=== PATIENT | male | born 1990 | race American Indian/Alaskan Native ===

== ENCOUNTER 2019-05-29 08:03 | Inpatient (IN) | payer OTHER ==
[2019-05-29] MEDS ORDERED: LORazepam 2 MG/ML VIAL IV PRN ×2 (08:29)
[2019-05-29] MEDS ORDERED: THIAMINE 100 MG, FOLIC ACID 1 MG, MULTIPLE VITAMIN INJ, ADULT 10 ML in SODIUM CHLORIDE ... IV ONE (08:29)
[2019-05-29] MEDS ORDERED: SODIUM CHLORIDE 0.9% 1000 ML 1,000 ML IV ONE ×2 (08:29→11:20)
[2019-05-29] MEDS ORDERED: levETIRAcetam 1000 MG/NS 0.75% 1,000 MG/100 ML BAG IV ONE (08:30)
--- NOTE | 2019-05-29 08:40 | Emergency Department Report ---
HPI - General Chief Complaint: Alcohol Time Seen by Provider: 05/29/19 08:20 - HPI HPI: 29-year-old -[place] male presents to the emergency department with complaint of what he believes to be alcohol withdrawal and "liver failure." The patient apparently does have some history of liver disease but denies liver failure. Patient does drink daily and says his last alcoholic beverage was last night. The patient also allegedly had a seizure last night. He complains of some nausea, vomiting, generalized weakness, shortness of breath. He does have a history of seizures for which she is on Keppra 500 mg twice daily but says he has not taken it for the past 2 days. Denies any tobacco or illicit drug use. No recent travel or sick contacts at home. ED Past Medical Hx - Past Medical History Previous Medical History?: Yes Hx Seizures: Yes Additional medical history: Liver disease, ETOH abuse - Surgical History Past Surgical History?: No - Social History Smoking Status: Current Every Day Smoker Substance Use Type: Alcohol, Prescribed ED Review of Systems ROS: Stated complaint: LIVER ISSUES, SOB, SEIZURES Other details as noted in HPI Comment: All other systems reviewed and negative Constitutional: diaphoresis. denies: fever Eyes: denies: eye pain, vision change ENT: denies: ear pain, throat pain Respiratory: shortness of breath. denies: cough Cardiovascular: denies: chest pain, palpitations Gastrointestinal: abdominal pain, nausea, vomiting Genitourinary: denies: dysuria, discharge Musculoskeletal: denies: back pain, arthralgia Skin: denies: rash, lesions Neurological: denies: headache, numbness, paresthesias Physical Exam - Physical Exam Vital Signs: Vital Signs 05/29/19 08:06 Temperature 98.6 F Pulse Rate 120 H Respiratory 18 Rate Blood Pressure 127/96 O2 Sat by Pulse 100 Oximetry Physical Exam: GENERAL: The patient is well-developed well-nourished. HENT: Normocephalic. Atraumatic. Patient has moist mucous membranes. EYES: Extraocular motions are intact. NECK: Supple. Trachea is midline. CHEST/LUNGS: Clear to auscultation. There is no respiratory distress noted. HEART/CARDIOVASCULAR: Regular. There is mild to moderate tachycardia. There is no murmur. ABDOMEN: Abdomen is soft. There is some upper abdominal tenderness to palpation. No guarding. Patient has normal bowel sounds. There is no abdominal distention. SKIN: Skin is warm and dry. NEURO: The patient is awake, alert, and oriented. The patient is cooperative. The patient has no focal neurologic deficits. Normal speech. Cranial nerves II through XII grossly intact. MUSCULOSKELETAL: There is no tenderness or deformity. There is no evidence of acute injury. ED Course Vital Signs 05/29/19 08:06 Temperature 98.6 F Pulse Rate 120 H Respiratory 18 Rate Blood Pressure 127/96 O2 Sat by Pulse 100 Oximetry - Consultations Consultation #1: 05/29/19 13:42 I spoke with the subeditor on-call, Dr. Sánchez, who will consult on this patient and has asked for an MRCP. I spoke with the general surgeon on-call, Dr. Cummings, who agrees that the lab and imaging results appear most consistent with liver disease and the patient does not appear to require any immediate surgical intervention. ED Medical Decision Making - Lab Data Result diagrams: 05/29/19 08:36 05/29/19 08:36 - EKG Data -: EKG Interpreted by Me EKG shows normal: sinus rhythm, axis, intervals, QRS complexes, ST-T waves Rate: normal - EKG Data When compared to previous EKG there are: previous EKG unavailable Interpretation: normal EKG - Medical Decision Making This patient presents to the emergency department with complaint of nausea, vomiting, generalized weakness, abdominal pain that he equated to alcohol withdrawal. The patient does have a history of alcohol dependence and presents with a blood alcohol level of 0.22. He does not appear acutely intoxicated at this time so it is possible that some of his symptoms could be attributed to withdrawal. Labs show very elevated bilirubin, alk phos and some elevation in the LFTs. Abdominal and chest x-rays are unremarkable. Ultrasound shows fatty liver disease, gallbladder sludge, and either some pericholecystic fluid versus edematous gallbladder wall. GI has been contacted and consulted. General surgery was contacted as well. The patient will be admitted to the hospital for further evaluation and treatment and has been accepted for admission by the hospitalist, Dr. Ruth. - Differential Diagnosis Cholelithiasis, choledocholithiasis, hepatitis, alcohol withdrawal Critical Care Time: Yes Critical care time in (mins) excluding proc time.: 35 Critical care attestation.: If time is entered above; I have spent that time in minutes in the direct care of this critically ill patient, excluding procedure time. Critical care time spent on this patient in doing his initial evaluation, multiple re-evaluations, ordering and interpretation of labs and imaging, treatment of the hyponatremia, discussion with gastroenterology regarding possible choledocholithiasis, discussion with general surgery, multiple discussions with the patient. Critical Care Time: 35 minutes ED Disposition Clinical Impression: Hyponatremia, Choledocholithiasis, Hypokalemia, Hepatitis Alcohol dependence Qualifiers: Substance use status: unspecified alcohol-induced disorder Qualified Code(s): F10.29 - Alcohol dependence with unspecified alcohol-induced disorder Cholelithiasis Qualifiers: Cholelithiasis location: gallbladder Cholecystitis presence: with cholecystitis Cholecystitis acuity: unspecified acuity Biliary obstruction: without biliary obstruction Qualified Code(s): K80.10 - Calculus of gallbladder with chronic cholecystitis without obstruction Disposition: OP ADMIT IP TO THIS HOSP Is pt being admited?: Yes Condition: Fair Time of Disposition: 13:15
--- NOTE | 2019-05-29 09:05 | XRay Report ---
ACUTE ABDOMEN SERIES INDICATION / CLINICAL INFORMATION: abd pain. COMPARISON: None available. FINDINGS: Normal bowel gas pattern. No evidence of obstruction or pneumoperitoneum. The accompanying chest x-ra y shows no acute disease Signer Name: Evangelist Hayden MD FACR Signed: 05/29/2019 9:00 AM Workstation Name: [id number]
[2019-05-29 09:24] LABS: Hematocrit 32.5 % (35.5-45.6); Hemoglobin 10.2 gm/dl (11.8-15.2); Mean Corpuscular HGB Conc 32 % (32-34); Mean Corpuscular Volume 96 fl (84-94); Platelet Count 262 K/mm3 (140-440); Red Cell Distribution Width 16.6 % (13.2-15.2)
[2019-05-29 09:26] LABS: Alanine Aminotransferase 137 units/L (7-56); Albumin 3.1 g/dL (3.9-5); BUN/Creatinine Ratio 5; Blood Urea Nitrogen 2 mg/dL (9-20); Calcium 7.5 mg/dL (8.4-10.2); Hemolysis Index 8
[2019-05-29] MEDS ORDERED: POTASSIUM CHLORIDE ER 20 MEQ TAB PO ONE (09:34)
[2019-05-29] MEDS ORDERED: MAGNESIUM SULFATE 2 GM/50 ML BAG IV ONE ×2 (09:34→23:43)
[2019-05-29 10:30] LABS: Bacteria,Urine 1+ /HPF (Negative); Bilirubin,Urine MOD (Negative); Blood,Urine NEG (Negative); Color,Urine Amber (Yellow); Mucus,Urine FEW /HPF
[2019-05-29 10:37] LABS: Benzodiazepines Screen,Urine PRESUMPTIVE NEGATIVE; Cocaine Screen,Urine PRESUMPTIVE NEGATIVE; Methadone Screen,Urine PRESUMPTIVE NEGATIVE; Opiate Screen,Urine PRESUMPTIVE NEGATIVE
[2019-05-29] MEDS: LORazepam 2 MG/ML VIAL IV PRN ×2 (10:52→23:15)
[2019-05-29 11:00] LABS: Amphetamine Screen,Urine PRESUMPTIVE POSITIVE; Cannabinoid Screen,Urine PRESUMPTIVE POSITIVE
[2019-05-29 11:04] LABS: Band Neutrophils # (Manual) 0.1 K/mm3; Eosinophils % (Manual) 0 % (0.0-4.3); Myelocytes # (Manual) 0.1 K/mm3; Total Cells Counted 100
[2019-05-29] MEDS ORDERED: PIPERACIL/TAZOBACTA 4.5/NS 100 4.5 GM/100 ML VIAL IV ONE (11:04)
[2019-05-29 11:05] LABS: Hypochromasia Few; Platelet Estimate Consistent w Auto; Stomatocytes Few; Target Cells 1+
--- NOTE | 2019-05-29 11:10 | Ultrasound Report ---
US abdomen limited INDICATION / CLINICAL INFORMATION: upper abd pain, elevated bilirubin. COMPARISON: None available. FINDINGS: Sludge is seen in the gallbladder with either a small amount of pericholecystic fluid or edematous ga llbladder wall. Common bile duct is normal measuring 2 mm. The liver is enlarged and has diffuse fatt y infiltration without focal abnormality. Visualized portions of the pancreas, right kidney and aorta are normal. IMPRESSION: 1. Sludge in the gallbladder with either a small amount of pericholecystic fluid present or mildly ed ematous gallbladder wall. 2. Enlarged fatty liver without focal abnormality Signer Name: Evangelist Hayden MD FACR Signed: 05/29/2019 11:05 AM Workstation Name: [id number]
[2019-05-29 11:20] LABS: Ictotest,Urine Positive (Negative)
--- NOTE | 2019-05-29 23:36 | Event Note ---
Date: 05/29/19 See history and physical in the reports EtOH dependence Acute hepatitis Impending liver failure Polysubstance abuse including alcohol and marijuana Hypokalemia
[2019-05-29] MEDS ORDERED: CALCIUM GLUCONATE 2,000 MG in SODIUM CHLORIDE 0.9% 100 ML IV ONE (23:44)
[2019-05-29] MEDS ORDERED: ACETAMINOPHEN 325 MG TAB PO PRN (23:48)
[2019-05-29] MEDS ORDERED: ONDANSETRON 4 MG/2 ML INJ IV PRN (23:48)
[2019-05-29] MEDS ORDERED: HYDROmorphone 1 MG/1 ML INJ IV PRN (23:48)
[2019-05-29] MEDS ORDERED: oxyCODONE /ACETAMINOPHEN 5-325MG TAB PO PRN (23:48)
--- NOTE | 2019-05-29 23:54 | History and Physical Report ---
CHIEF COMPLAINT: 1. ETOH dependence. 2. Tremulousness. HISTORY OF PRESENT ILLNESS: A 29-year-old -[place] male with history of ETOH dependence, comes in for tremulousness and possible hepatic failure. The patient drinks daily about a pint of vodka. The patient states that he has been drinking for the last 3 years. The patient also has seizures last night. No seizures now. The patient has nausea, vomiting, and generalized weakness and some shortness of breath. The patient is on Keppra for seizure disorder 500 mg twice a day. No tobacco. Uses marijuana on a regular basis. A pint of vodka every day. PAST MEDICAL HISTORY: 1. Seizure disorder secondary to alcohol withdrawal. 2. Liver disease and hepatitis. 3. Alcohol abuse. PAST SURGICAL HISTORY: None. SOCIAL HISTORY: Smokes about a pack a day every day and alcohol and marijuana on a regular basis. Pint of vodka on a regular basis. FAMILY HISTORY: Hypertension. REVIEW OF SYSTEMS: Significant for tremulousness, seizures last night and very nervous, shaking. Restlessness. Otherwise, review of systems negative. PHYSICAL EXAMINATION: GENERAL: Young male, cooperative during examination. VITAL SIGNS: Blood pressure is 126/90, temperature is 98.9, pulse is 97, respirations are 18, sats are 99%. HEENT: Unremarkable. Pupils equal and reactive. NECK: Supple, no lymphadenopathy, no thyromegaly. LUNGS: Clear to auscultation and percussion. Good air entry. CARDIOVASCULAR SYSTEM: S1, S2 heard. No gallop, no murmur, no rub. Apical impulse in left fifth intercostal space and midclavicular line. ABDOMEN: Soft and benign. Hepatomegaly present. No guarding or tenderness present. Bowel sounds are normal. EXTREMITIES: Good pedal pulses. No pedal edema. CENTRAL NERVOUS SYSTEM: Alert and oriented x 4, was answering questions appropriately. No focal deficits. LABORATORY DATA: Significant for white count of 8500, H and H is 10.2 and 32.5, platelet count is 262,000. Sodium is 126, potassium is 2.9, BUN and creatinine is 2 and 0.4, glucose is 133, calcium is 7.5, magnesium is 1.1, total bilirubin is 9.0, AST is 426, ALT is 137, alkaline phosphatase is 663, total protein is 5.9, albumin is 3.1, lipase is 84. Urine Ictotest is positive for wbc's 11. Drug screen is positive for alcohol of 0.22 and marijuana is positive. Amphetamines is positive. Chest x-ray normal. Small bowel gas pattern. No evidence of obstruction or pneumoperitoneum. No acute disease on the chest. Abdominal ultrasound shows sludge in the gallbladder with a small amount of pericholecystic fluid present. Mildly edematous gallbladder wall. Enlarged fatty liver without focal abnormality. ASSESSMENT AND PLAN: 1. Seizure disorder secondary to alcohol withdrawal. Continue Keppra IV at 750 q. 12. 2. ETOH dependence and withdrawal. The patient initiated on CIWA protocol. Continue CIWA protocol and banana bag. 3. Anemia. Anemia workup. 4. Hyponatremia. IV normal saline for now. 5. Hypokalemia, supplemented. Recheck the potassium level. 6. Acute hepatitis. Bilirubin is 9.0, AST is 426, ALT is 137. We will get hepatitis profile in favor of ETOH induced hepatitis. We will check ammonia level also. We will also check the protime and PTT. 7. Hypomagnesemia, supplemented. 8. Hypocalcemia, supplemented. 9. Urinary tract infection, IV Rocephin 1 gram IV piggyback q. 24. 10. Deep venous thrombosis prophylaxis, Lovenox 40 subcutaneous daily. 11. Acute gastritis. IV famotidine. GI consult requested. ER physician has requested surgical consult. At this point, I do not think there is any surgical indication leg choledocholithiasis. JOB# [id number] VSM/NTS
[2019-05-30] MEDS: FAMOTIDINE 20 MG/2 ML INJ IV SCH ×3 (01:00→23:00)
[2019-05-30] MEDS: POTASSIUM CHLORIDE 10 MEQ 10 MEQ/100 ML BAG IV SCH ×4 (01:01→05:00)
[2019-05-30] MEDS: POTASSIUM CHLORIDE ER 20 MEQ TAB PO SCH ×3 (01:02→08:34)
[2019-05-30 01:20] LABS: Hepatitis B Surface Antigen Non-Reactive (Negative); Hepatitis C Virus Antibody Non-Reactive (NonReactive)
[2019-05-30] MEDS: levETIRAcetam 750 MG in DEXTROSE 5% IN WATER 100 ML IV SCH ×3 (01:40→22:55)
[2019-05-30] MEDS: D5W/0.9% NACL 1,000 ML IV SCH ×2 (02:07→11:52)
[2019-05-30] MEDS ORDERED: SODIUM CHLORIDE 0.9% 250ML 250 ML ONE (02:29)
[2019-05-30] MEDS: LORazepam 2 MG/ML VIAL IV PRN ×4 (02:48→17:06)
[2019-05-30 03:12] LABS: Iron 118 ug/dL (49-181)
[2019-05-30 05:40] LABS: % Iron Saturation 101.72 %; Total Iron Binding Capacity 116 mcg/dL (250-450)
[2019-05-30 06:37] LABS: Hematocrit 27.5 % (35.5-45.6); Hemoglobin 8.9 gm/dl (11.8-15.2); Mean Corpuscular HGB Conc 32 % (32-34); Mean Corpuscular Volume 96 fl (84-94); Platelet Count 251 K/mm3 (140-440); Red Blood Count 2.85 M/mm3 (3.65-5.03); Red Cell Distribution Width 16.5 % (13.2-15.2)
[2019-05-30 07:04] LABS: Alanine Aminotransferase 107 units/L (7-56); Albumin 2.7 g/dL (3.9-5); BUN/Creatinine Ratio 7; Blood Urea Nitrogen 2 mg/dL (9-20); Calcium 7.5 mg/dL (8.4-10.2); Hemolysis Index 23
[2019-05-30] MEDS ORDERED: cefTRIAXone/NS 1 GM/50 ML 1 GM/50 ML BAG IV SCH (10:00)
[2019-05-30 10:06] LABS: Band Neutrophils # (Manual) 0.3 K/mm3; Myelocytes # (Manual) 0.2 K/mm3; Total Cells Counted 100
[2019-05-30 10:07] LABS: Hypochromasia Few; Platelet Estimate Consistent w Auto; Stomatocytes Few; Target Cells 1+
--- NOTE | 2019-05-30 14:00 | Progress Note ---
Assessment and Plan Assessment and plan: Patient is a 29 yo man with a history of tobacco dependency, alcohol abuse, Liver disease and seizure disorder who presented to hosptial with Sz at home. He was quite Intoxicated, with serum ETOH 0.22 (0-0.7). UDS is positive for Amphetamines and marijuana. Unwitnessed Sz with history fo sz, most likely ETOH related, ETOH intoxication: counseling done, neurochecks, sz precautions, on keppra Acute toxic encephalopathy from ETOH Hyponatremia, severe: treat with IVFs Alcohol abuse: treat with CIWA,added thiamine and folic acid Fatty liver/Hepatic steasosis due to ETOH Abd GB on imaging but no pains, and no confusion. MRCP, GI consulted Polysubstance abuse, counseling done, he attribute his current state to father dying 2 months abuse. He denies SI but he is in a destructive mode. He needs extensive out patient behavior therapy, will refer him to out patient psychiatrist. 05/30/19: d/c once sodium levels are stable, MRCP pending History Interval history: Patient was seen and examined. Follow-up on current diagnosis etoh abuse. Overnight uneventful as no events directly reported to me. Patient denies any chest pain, shortness breath, nausea/vomiting or severe headaches. Imaging, nursing note, chart, labs and old chart reviewed. Discussed with patient. Hospitalist Physical - Physical exam Narrative exam: Gen: WDWN, NAD, Awake, Alert, Orientated HEENT: NCAT, EOMI, PERRL, OP Clear Neck: supple, no adenopathy, no thyromegaly, no JVD CVS/Heart: RT, normal S1S2, pulses present bilaterally Chest/Lungs: CTA B, Symmetrical chest expansion, good air entry bilaterally GI/Abdomen: soft, NTND, good bowel sounds, no guarding or rebound /Bladder: no suprapubic tenderness, no CVA or paraspinal tenderness Extermity/Skin: no c/c/e, no obvious rash MSK: FROM x 4 Neuro: CN 2-12 grossly intact, no new focal deficits Psych: calm - Constitutional Vitals: Temp Pulse Resp BP Pulse Ox 99.9 F H 117 H 24 112/73 99 05/30/19 11:23 05/30/19 11:23 05/30/19 11:23 05/30/19 11:23 05/30/19 11:23 Results - Labs CBC & Chem 7: 05/30/19 05:03 05/30/19 05:03 Labs: Laboratory Last Values WBC 8.5 K/mm3 (4.5-11.0) 05/30/19 05:03 RBC 2.85 M/mm3 (3.65-5.03) L 05/30/19 05:03 Hgb 8.9 gm/dl (11.8-15.2) L 05/30/19 05:03 Hct 27.5 % (35.5-45.6) L 05/30/19 05:03 MCV 96 fl (84-94) H 05/30/19 05:03 MCH 31 pg (28-32) 05/30/19 05:03 MCHC 32 % (32-34) 05/30/19 05:03 RDW 16.5 % (13.2-15.2) H 05/30/19 05:03 Plt Count 251 K/mm3 (140-440) 05/30/19 05:03 Baso % (Auto) Bead Maker 05/29/19 08:36 Add Manual Diff Complete 05/30/19 05:03 Total Counted 100 05/30/19 05:03 Seg Neuts % (Manual) 75.0 % (40.0-70.0) H 05/30/19 05:03 Band Neutrophils % 3.0 % 05/30/19 05:03 Lymphocytes % (Manual) 13.0 % (13.4-35.0) L 05/30/19 05:03 Reactive Lymphs % (Man) 0 % 05/30/19 05:03 Monocytes % (Manual) 4.0 % (0.0-7.3) 05/30/19 05:03 Eosinophils % (Manual) 2.0 % (0.0-4.3) 05/30/19 05:03 Basophils % (Manual) 1.0 % (0.0-1.8) 05/30/19 05:03 Metamyelocytes % 0 % 05/30/19 05:03 Myelocytes % 2.0 % 05/30/19 05:03 Promyelocytes % 0 % 05/30/19 05:03 Blast Cells % 0 % 05/30/19 05:03 Nucleated RBC % 5.0 % (0.0-0.9) H 05/30/19 05:03 Seg Neutrophils # Man 6.4 K/mm3 (1.8-7.7) 05/30/19 05:03 Band Neutrophils # 0.3 K/mm3 05/30/19 05:03 Lymphocytes # (Manual) 1.1 K/mm3 (1.2-5.4) L 05/30/19 05:03 Abs React Lymphs (Man) 0.0 K/mm3 05/30/19 05:03 Monocytes # (Manual) 0.3 K/mm3 (0.0-0.8) 05/30/19 05:03 Eosinophils # (Manual) 0.2 K/mm3 (0.0-0.4) 05/30/19 05:03 Basophils # (Manual) 0.1 K/mm3 (0.0-0.1) 05/30/19 05:03 Metamyelocytes # 0.0 K/mm3 05/30/19 05:03 Myelocytes # 0.2 K/mm3 05/30/19 05:03 Promyelocytes # 0.0 K/mm3 05/30/19 05:03 Blast Cells # 0.0 K/mm3 05/30/19 05:03 WBC Morphology Not Reportable 05/30/19 05:03 Hypersegmented Neuts Not Reportable 05/30/19 05:03 Hyposegmented Neuts Not Reportable 05/30/19 05:03 Hypogranular Neuts Not Reportable 05/30/19 05:03 Smudge Cells Not Reportable 05/30/19 05:03 Toxic Granulation Not Reportable 05/30/19 05:03 Toxic Vacuolation Not Reportable 05/30/19 05:03 Dohle Bodies Not Reportable 05/30/19 05:03 Pelger-Huet Anomaly Not Reportable 05/30/19 05:03 Jeremy Rods Not Reportable 05/30/19 05:03 Platelet Estimate Consistent w auto 05/30/19 05:03 Clumped Platelets Not Reportable 05/30/19 05:03 Plt Clumps, EDTA Not Reportable 05/30/19 05:03 Large Platelets Not Reportable 05/30/19 05:03 Giant Platelets Not Reportable 05/30/19 05:03 Platelet Satelliting Not Reportable 05/30/19 05:03 Plt Morphology Comment Not Reportable 05/30/19 05:03 RBC Morphology Not Reportable 05/30/19 05:03 Dimorphic RBCs Not Reportable 05/30/19 05:03 Polychromasia Few 05/30/19 05:03 Hypochromasia Few 05/30/19 05:03 Poikilocytosis Not Reportable 05/30/19 05:03 Anisocytosis Not Reportable 05/30/19 05:03 Microcytosis Not Reportable 05/30/19 05:03 Macrocytosis Not Reportable 05/30/19 05:03 Spherocytes Not Reportable 05/30/19 05:03 Pappenheimer Bodies Not Reportable 05/30/19 05:03 Sickle Cells Not Reportable 05/30/19 05:03 Target Cells 1+ 05/30/19 05:03 Tear Drop Cells Not Reportable 05/30/19 05:03 Ovalocytes Not Reportable 05/30/19 05:03 Stomatocytes Few 05/30/19 05:03 Helmet Cells Not Reportable 05/30/19 05:03 [place] Bodies Not Reportable 05/30/19 05:03 [place] Rings Not Reportable 05/30/19 05:03 [place] Cells Not Reportable 05/30/19 05:03 Bite Cells Not Reportable 05/30/19 05:03 Crenated Cell Not Reportable 05/30/19 05:03 Elliptocytes Not Reportable 05/30/19 05:03 Acanthocytes (Spur) Not Reportable 05/30/19 05:03 Rouleaux Not Reportable 05/30/19 05:03 Hemoglobin C Crystals Not Reportable 05/30/19 05:03 Schistocytes Not Reportable 05/30/19 05:03 Malaria parasites Not Reportable 05/30/19 05:03 Ang Bodies Not Reportable 05/30/19 05:03 Hem Pathologist Commnt No 05/30/19 05:03 Sodium 127 mmol/L (137-145) L 05/30/19 05:03 Potassium 4.3 mmol/L (3.6-5.0) D 05/30/19 05:03 Chloride 91.3 mmol/L (98-107) L 05/30/19 05:03 Carbon Dioxide 18 mmol/L (22-30) L 05/30/19 05:03 Anion Gap 22 mmol/L 05/30/19 05:03 BUN 2 mg/dL (9-20) L 05/30/19 05:03 Creatinine 0.3 mg/dL (0.8-1.5) L 05/30/19 05:03 Estimated GFR > 60 ml/min 05/30/19 05:03 BUN/Creatinine Ratio 7 % 05/30/19 05:03 Glucose 108 mg/dL (75-100) H 05/30/19 05:03 Calcium 7.5 mg/dL (8.4-10.2) L 05/30/19 05:03 Magnesium 1.10 mg/dL (1.7-2.3) L 05/29/19 08:36 Iron 118 ug/dL (49-181) 05/30/19 00:02 TIBC 116 mcg/dL (250-450) L 05/30/19 00:02 % Saturation 101.72 % 05/30/19 00:02 Transferrin 94 mg/dl (180-329) L 05/30/19 00:02 Total Bilirubin 9.70 mg/dL (0.1-1.2) H 05/30/19 05:03 AST 345 units/L (5-40) H 05/30/19 05:03 ALT 107 units/L (7-56) H 05/30/19 05:03 Alkaline Phosphatase 565 units/L (35-129) H 05/30/19 05:03 Ammonia 50.0 umol/L (25-60) 05/30/19 00:02 Total Protein 5.1 g/dL (6.3-8.2) L 05/30/19 05:03 Albumin 2.7 g/dL (3.9-5) L 05/30/19 05:03 Albumin/Globulin Ratio 1.1 % 05/30/19 05:03 Amylase 86 units/L (27-131) 05/30/19 00:02 Lipase 84 units/L (13-60) H 05/29/19 08:36 Vitamin B12 1315 pg/mL (211-911) H 05/30/19 00:02 Urine Color Sendy (Yellow) 05/29/19 09:07 Urine Turbidity Clear (Clear) 05/29/19 09:07 Urine pH 5.0 (5.0-7.0) 05/29/19 09:07 Ur Specific [place] 1.028 (1.003-1.030) 05/29/19 09:07 Urine Protein 30 mg/dl mg/dL (Negative) 05/29/19 09:07 Urine Glucose (UA) Neg mg/dL (Negative) 05/29/19 09:07 Urine Ketones Tr mg/dL (Negative) 05/29/19 09:07 Urine Blood Neg (Negative) 05/29/19 09:07 Urine Nitrite Neg (Negative) 05/29/19 09:07 Urine Bilirubin Mod (Negative) 05/29/19 09:07 Urine Ictotest Positive (Negative) 05/29/19 09:07 Urine Urobilinogen 4.0 mg/dL (<2.0) 05/29/19 09:07 Ur Leukocyte Esterase Neg (Negative) 05/29/19 09:07 Urine WBC (Auto) 11.0 /HPF (0.0-6.0) H 05/29/19 09:07 Urine RBC (Auto) 1.0 /HPF (0.0-6.0) 05/29/19 09:07 U Epithel Cells (Auto) 1.0 /HPF (0-13.0) 05/29/19 09:07 Urine Bacteria (Auto) 1+ /HPF (Negative) 05/29/19 09:07 Urine Mucus Few /HPF 05/29/19 09:07 Urine Opiates Screen Presumptive negative 05/29/19 09:07 Urine Methadone Screen Presumptive negative 05/29/19 09:07 Ur Barbiturates Screen Presumptive negative 05/29/19 09:07 Ur Phencyclidine Scrn Presumptive negative 05/29/19 09:07 Ur Amphetamines Screen Presumptive positive 05/29/19 09:07 U Benzodiazepines Scrn Presumptive negative 05/29/19 09:07 Urine Cocaine Screen Presumptive negative 05/29/19 09:07 U Marijuana (THC) Screen Presumptive positive 05/29/19 09:07 Drugs of Abuse Note Disclamer 05/29/19 09:07 Plasma/Serum Alcohol 0.22 % (0-0.07) H 05/29/19 08:36 Hepatitis A IgM Ab Non-reactive (NonReactive) 05/30/19 00:02 Hep Bs Antigen Non-reactive (Negative) 05/30/19 00:02 Hep B Core IgM Ab Non-reactive (NonReactive) 05/30/19 00:02 Hepatitis C Antibody Non-reactive (NonReactive) 05/30/19 00:02 Microbiology: Microbiology 05/29/19 09:07 Urine,Clean Catch Urine Culture - Preliminary NO GROWTH AFTER 24 HOURS 05/29/19 13:08 Peripheral/Venous Blood Culture - Preliminary Culture in Progress 05/29/19 13:08 Peripheral/Venous Blood Culture - Preliminary Culture in Progress Fernandes/IV: Voiding Method Toilet IV Catheter Type [Left Forearm INT / Saline Lock ] Active Medications - Current Medications Current Medications: Generic Name Dose Route Start Last Admin Trade Name Freq PRN Reason Stop Dose Admin Acetaminophen 650 mg 05/29/19 23:48 Tylenol PO Q4H PRN Pain MILD(1-3)/Fever >100.5/MACDONALD Famotidine 20 mg 05/29/19 23:45 05/30/19 09:08 Pepcid IV 20 mg BID TREVOR Administration Hydromorphone HCl 0.5 mg 05/29/19 23:48 Dilaudid IV Q3H PRN Pain , Severe (7-10) Ceftriaxone Sodium 1 gm in 50 mls @ 100 mls/hr 05/30/19 10:00 05/30/19 09:08 Rocephin/Ns 1 Gm/50 Ml IV 100 mls/hr Q24HR TREVOR Administration Protocol Dextrose/Sodium Chloride 1,000 mls @ 100 mls/hr 05/29/19 23:45 05/30/19 11:52 D5ns IV 100 mls/hr DIRECT TREVOR Administration Levetiracetam 750 mg/ Dextrose 107.5 mls @ 400 mls/hr 05/29/19 23:45 05/30/19 09:08 IV 400 mls/hr Q12HR TREVOR Administration Lorazepam 2 mg 05/29/19 08:29 05/30/19 12:52 Ativan IV 2 mg Q1HR PRN Administration CIWA-Ar 8-15 Lorazepam 4 mg 05/29/19 08:29 Ativan IV Q1HR PRN CIWA-Ar 16-25 Lorazepam 4 mg 05/29/19 08:29 Ativan IV Q15MIN PRN CIWA-Ar >25 Ondansetron HCl 4 mg 05/29/19 23:48 Zofran IV Q8H PRN Nausea And Vomiting Oxycodone/Acetaminophen 1 tab 05/29/19 23:48 Percocet 5/325 PO Q6H PRN Pain, Moderate (4-6) Sodium Chloride 10 ml 05/30/19 10:00 05/30/19 09:08 Sodium Chloride Flush Syringe 10 Ml IV 10 ml BID TREVOR Administration Sodium Chloride 10 ml 05/29/19 23:48 Sodium Chloride Flush Syringe 10 Ml IV PRN PRN LINE FLUSH
--- NOTE | 2019-05-30 14:37 | Gastroenterology Consultation ---
History of Present Illness - Reason for Consult Consult date: 05/30/19 Elevated LFT Requesting physician: BLAKE GIFFORD - History of Present Illness 29-year-old male presenting with nausea vomiting fatigue weakness and alcohol abuse. He reports drinking daily, last drink was just prior to coming to the ER The patient also allegedly had a seizure prior to coming to the ER. He does have a history of seizures for which she is on Keppra 500 mg twice daily but says he has not taken it for the past 2 days. Denies any tobacco or illicit drug use. No recent travel or sick contacts at home. Medical historyseizures alcohol abuse liver disease Surgical historynone Social historypositive alcohol and tobacco Family history - no family history of liver failure Allergies - no known drug allergies Home medications -please see med rec list Home meds reviewed updated and reconciled Medications and Allergies Allergies Allergy/AdvReac Type Severity Reaction Status Date / Time No Known Allergies Allergy Verified 05/29/19 08:31 Active Meds: Active Medications Acetaminophen (Tylenol) 650 mg PO Q4H PRN PRN Reason: Pain MILD(1-3)/Fever >100.5/MACDONALD Famotidine (Pepcid) 20 mg IV BID [facility] Last Admin: 05/30/19 09:08 Dose: 20 mg Documented by: Folic Acid (Folvite) 1 mg PO QDAY TREVOR Hydromorphone HCl (Dilaudid) 0.5 mg IV Q3H PRN PRN Reason: Pain , Severe (7-10) Ceftriaxone Sodium (Rocephin/Ns 1 Gm/50 Ml) 1 gm in 50 mls @ 100 mls/hr IV Q24HR TREVOR; Protocol Last Admin: 05/30/19 09:08 Dose: 100 mls/hr Documented by: Dextrose/Sodium Chloride (D5ns) 1,000 mls @ 100 mls/hr IV DIRECT TREVOR Last Admin: 05/30/19 11:52 Dose: 100 mls/hr Documented by: Levetiracetam 750 mg/ Dextrose 107.5 mls @ 400 mls/hr IV Q12HR TREVOR Last Admin: 05/30/19 09:08 Dose: 400 mls/hr Documented by: Lorazepam (Ativan) 2 mg IV Q1HR PRN PRN Reason: CIWA-Ar 8-15 Last Admin: 03/29/20 12:52 Dose: 2 mg Documented by: Lorazepam (Ativan) 4 mg IV Q1HR PRN PRN Reason: CIWA-Ar 16-25 Lorazepam (Ativan) 4 mg IV Q15MIN PRN PRN Reason: CIWA-Ar >25 Ondansetron HCl (Zofran) 4 mg IV Q8H PRN PRN Reason: Nausea And Vomiting Oxycodone/Acetaminophen (Percocet 5/325) 1 tab PO Q6H PRN PRN Reason: Pain, Moderate (4-6) Sodium Chloride (Sodium Chloride Flush Syringe 10 Ml) 10 ml IV BID [facility] Last Admin: 05/30/19 09:08 Dose: 10 ml Documented by: Sodium Chloride (Sodium Chloride Flush Syringe 10 Ml) 10 ml IV PRN PRN PRN Reason: LINE FLUSH Thiamine HCl (Vitamin B-1) 100 mg PO QDAY [facility] Review of Systems - Review of Systems All systems: negative (10 systems reviewed and negative except as mentioned ab ove in the history of present illness) Exam - Constitutional Vital Signs: Temp Pulse Resp BP Pulse Ox 99.9 F H 117 H 24 112/73 99 05/30/19 11:23 05/30/19 11:23 05/30/19 11:23 05/30/19 11:23 05/30/19 11:23 General appearance: no acute distress - EENT Eyes: scleral icterus - Neck Neck: supple - Respiratory Respiratory effort: normal - Cardiovascular Rhythm: regular - Gastrointestinal General gastrointestinal: Present: soft - Integumentary Integumentary: Present: dry - Neurologic Neurological: alert and oriented x3 - Psychiatric Psychiatric: appropriate mood/affect - Labs CBC & Chem 7: 05/30/19 05:03 05/30/19 05:03 Lab Results: Laboratory Results - last 24 hr 05/30/19 05/30/19 05/30/19 00:02 00:02 00:02 WBC RBC Hgb Hct MCV MCH MCHC RDW Plt Count Add Manual Diff Total Counted Seg Neuts % (Manual) Band Neutrophils % Lymphocytes % (Manual) Reactive Lymphs % (Man) Monocytes % (Manual) Eosinophils % (Manual) Basophils % (Manual) Metamyelocytes % Myelocytes % Promyelocytes % Blast Cells % Nucleated RBC % Seg Neutrophils # Man Band Neutrophils # Lymphocytes # (Manual) Abs React Lymphs (Man) Monocytes # (Manual) Eosinophils # (Manual) Basophils # (Manual) Metamyelocytes # Myelocytes # Promyelocytes # Blast Cells # WBC Morphology Hypersegmented Neuts Hyposegmented Neuts Hypogranular Neuts Smudge Cells Toxic Granulation Toxic Vacuolation Dohle Bodies Pelger-Huet Anomaly Jeremy Rods Platelet Estimate Clumped Platelets Plt Clumps, EDTA Large Platelets Giant Platelets Platelet Satelliting Plt Morphology Comment RBC Morphology Dimorphic RBCs Polychromasia Hypochromasia Poikilocytosis Anisocytosis Microcytosis Macrocytosis Spherocytes Pappenheimer Bodies Sickle Cells Target Cells Tear Drop Cells Ovalocytes Stomatocytes Helmet Cells Jaramillo-[place] Bodies [place] Rings Patrice Cells Bite Cells Crenated Cell Elliptocytes Acanthocytes (Spur) Rouleaux Hemoglobin C Crystals Schistocytes Malaria parasites Ang Bodies Hem Pathologist Commnt Sodium Potassium Chloride Carbon Dioxide Anion Gap BUN Creatinine Estimated GFR BUN/Creatinine Ratio Glucose Calcium Iron 118 TIBC 116 L % Saturation 101.72 Transferrin 94 L Total Bilirubin AST ALT Alkaline Phosphatase Ammonia 50.0 Total Protein Albumin Albumin/Globulin Ratio Amylase 86 Vitamin B12 Hepatitis A IgM Ab Hep Bs Antigen Hep B Core IgM Ab Hepatitis C Antibody 05/30/19 05/30/19 05/30/19 00:02 00:02 05:03 WBC 8.5 RBC 2.85 L Hgb 8.9 L Hct 27.5 L MCV 96 H MCH 31 MCHC 32 RDW 16.5 H Plt Count 251 Add Manual Diff Complete Total Counted 100 Seg Neuts % (Manual) 75.0 H Band Neutrophils % 3.0 Lymphocytes % (Manual) 13.0 L Reactive Lymphs % (Man) 0 Monocytes % (Manual) 4.0 Eosinophils % (Manual) 2.0 Basophils % (Manual) 1.0 Metamyelocytes % 0 Myelocytes % 2.0 Promyelocytes % 0 Blast Cells % 0 Nucleated RBC % 5.0 H Seg Neutrophils # Man 6.4 Band Neutrophils # 0.3 Lymphocytes # (Manual) 1.1 L Abs React Lymphs (Man) 0.0 Monocytes # (Manual) 0.3 Eosinophils # (Manual) 0.2 Basophils # (Manual) 0.1 Metamyelocytes # 0.0 Myelocytes # 0.2 Promyelocytes # 0.0 Blast Cells # 0.0 WBC Morphology Not Reportable Hypersegmented Neuts Not Reportable Hyposegmented Neuts Not Reportable Hypogranular Neuts Not Reportable Smudge Cells Not Reportable Toxic Granulation Not Reportable Toxic Vacuolation Not Reportable Dohle Bodies Not Reportable Pelger-Huet Anomaly Not Reportable Jeremy Rods Not Reportable Platelet Estimate Consistent w auto Clumped Platelets Not Reportable Plt Clumps, EDTA Not Reportable Large Platelets Not Reportable Giant Platelets Not Reportable Platelet Satelliting Not Reportable Plt Morphology Comment Not Reportable RBC Morphology Not Reportable Dimorphic RBCs Not Reportable Polychromasia Few Hypochromasia Few Poikilocytosis Not Reportable Anisocytosis Not Reportable Microcytosis Not Reportable Macrocytosis Not Reportable Spherocytes Not Reportable Pappenheimer Bodies Not Reportable Sickle Cells Not Reportable Target Cells 1+ Tear Drop Cells Not Reportable Ovalocytes Not Reportable Stomatocytes Few Helmet Cells Not Reportable Jaramillo-[place] Bodies Not Reportable [place] Rings Not Reportable [place] Cells Not Reportable Bite Cells Not Reportable Crenated Cell Not Reportable Elliptocytes Not Reportable Acanthocytes (Spur) Not Reportable Rouleaux Not Reportable Hemoglobin C Crystals Not Reportable Schistocytes Not Reportable Malaria parasites Not Reportable Ang Bodies Not Reportable Hem Pathologist Commnt No Sodium Potassium Chloride Carbon Dioxide Anion Gap BUN Creatinine Estimated GFR BUN/Creatinine Ratio Glucose Calcium Iron TIBC % Saturation Transferrin Total Bilirubin AST ALT Alkaline Phosphatase Ammonia Total Protein Albumin Albumin/Globulin Ratio Amylase Vitamin B12 1315 H Hepatitis A IgM Ab Non-reactive Hep Bs Antigen Non-reactive Hep B Core IgM Ab Non-reactive Hepatitis C Antibody Non-reactive 05/30/19 05:03 WBC RBC Hgb Hct MCV MCH MCHC RDW Plt Count Add Manual Diff Total Counted Seg Neuts % (Manual) Band Neutrophils % Lymphocytes % (Manual) Reactive Lymphs % (Man) Monocytes % (Manual) Eosinophils % (Manual) Basophils % (Manual) Metamyelocytes % Myelocytes % Promyelocytes % Blast Cells % Nucleated RBC % Seg Neutrophils # Man Band Neutrophils # Lymphocytes # (Manual) Abs React Lymphs (Man) Monocytes # (Manual) Eosinophils # (Manual) Basophils # (Manual) Metamyelocytes # Myelocytes # Promyelocytes # Blast Cells # WBC Morphology Hypersegmented Neuts Hyposegmented Neuts Hypogranular Neuts Smudge Cells Toxic Granulation Toxic Vacuolation Dohle Bodies Pelger-Huet Anomaly Jeremy Rods Platelet Estimate Clumped Platelets Plt Clumps, EDTA Large Platelets Giant Platelets Platelet Satelliting Plt Morphology Comment RBC Morphology Dimorphic RBCs Polychromasia Hypochromasia Poikilocytosis Anisocytosis Microcytosis Macrocytosis Spherocytes Pappenheimer Bodies Sickle Cells Target Cells Tear Drop Cells Ovalocytes Stomatocytes Helmet Cells Jaramillo-[place] Bodies [place] Rings Patrice Cells Bite Cells Crenated Cell Elliptocytes Acanthocytes (Spur) Rouleaux Hemoglobin C Crystals Schistocytes Malaria parasites Ang Bodies Hem Pathologist Commnt Sodium 127 L Potassium 4.3 D Chloride 91.3 L Carbon Dioxide 18 L Anion Gap 22 BUN 2 L Creatinine 0.3 L Estimated GFR > 60 BUN/Creatinine Ratio 7 Glucose 108 H Calcium 7.5 L Iron TIBC % Saturation Transferrin Total Bilirubin 9.70 H AST 345 H ALT 107 H Alkaline Phosphatase 565 H Ammonia Total Protein 5.1 L Albumin 2.7 L Albumin/Globulin Ratio 1.1 Amylase Vitamin B12 Hepatitis A IgM Ab Hep Bs Antigen Hep B Core IgM Ab Hepatitis C Antibody Assessment and Plan Acute hepatitis panel negative, MRCP pending Differential diagnosis includes obstructive jaundice (MRCP should demonstrate etiology if this is the case), acute alcoholic hepatitis, other etiologies such as infectious drug-induced liver injury etc. lower on the differential diagnosis Will check INR now for a measure of synthetic function of liver Check INR daily along with LFTs (order placed for the INR now and tomorrow morning by me) We will trend LFTs, follow-up MRI results, and I will continue to follow with you daily - Patient Problems (1) Transaminitis Current Visit: Yes Status: Acute (2) Jaundice Current Visit: Yes Status: Acute (3) Alcohol dependence Current Visit: Yes Status: Acute Qualifiers: Substance use status: unspecified alcohol-induced disorder Qualified Code(s): F10.29 - Alcohol dependence with unspecified alcohol-induced disorder (4) Cholelithiasis Current Visit: Yes Status: Acute Qualifiers: Cholelithiasis location: gallbladder Cholecystitis presence: with cholecystitis Cholecystitis acuity: unspecified acuity Biliary obstruction: without biliary obstruction Qualified Code(s): K80.10 - Calculus of gallbladder with chronic cholecystitis without obstruction
[2019-05-30] MEDS ORDERED: THIAMINE 100 MG TAB PO SCH (16:00)
[2019-05-30] MEDS ORDERED: FOLIC ACID 1 MG TAB PO SCH (16:00)
[2019-05-30 21:25] LABS: INR 1.11 (0.87-1.13)
[2019-05-31] MEDS: LORazepam 2 MG/ML VIAL IV PRN ×2 (00:13→03:10)
[2019-05-31 00:18] VITALS: BP 101/70
[2019-05-31] MEDS: D5W/0.9% NACL 1,000 ML IV SCH (00:56)
[2019-05-31 06:27] LABS: Hematocrit 27.7 % (35.5-45.6); Mean Corpuscular HGB Conc 33 % (32-34); Mean Corpuscular Volume 97 fl (84-94); Platelet Count 277 K/mm3 (140-440); Red Blood Count 2.86 M/mm3 (3.65-5.03); Red Cell Distribution Width 15.9 % (13.2-15.2)
[2019-05-31 06:35] LABS: INR 1.16 (0.87-1.13)
[2019-05-31 06:49] LABS: Alanine Aminotransferase 89 units/L (7-56); Albumin 2.5 g/dL (3.9-5); BUN/Creatinine Ratio 3; Blood Urea Nitrogen < 1 mg/dL (9-20); Hemolysis Index 9
--- NOTE | 2019-05-31 09:05 | Gastroenterology Progress Note ---
Assessment and Plan Acute hepatitis panel negative, MRCP pending Differential diagnosis includes obstructive jaundice (MRCP should demonstrate etiology if this is the case), acute alcoholic hepatitis, other etiologies such as infectious drug-induced liver injury etc. lower on the differential diagnosis INR acceptable, indicating intact liver synthetic function We will trend LFTs, follow-up MRI results, and I will continue to follow with you daily Patient was asking about going home. I did not recommend leaving the hospital until the liver enzymes are definitively trending down, he is concerned about his family at home and is considering leaving AMA I did discuss with him the potential risks of doing so - Patient Problems (1) Transaminitis Current Visit: Yes Status: Acute (2) Jaundice Current Visit: Yes Status: Acute (3) Alcohol dependence Current Visit: Yes Status: Acute Qualifiers: Substance use status: unspecified alcohol-induced disorder Qualified Code(s): F10.29 - Alcohol dependence with unspecified alcohol-induced disorder (4) Cholelithiasis Current Visit: Yes Status: Acute Qualifiers: Cholelithiasis location: gallbladder Cholecystitis presence: with cholecystitis Cholecystitis acuity: unspecified acuity Biliary obstruction: without biliary obstruction Qualified Code(s): K80.10 - Calculus of gallbladder with chronic cholecystitis without obstruction Subjective Date of service: 05/31/19 Principal diagnosis: Abnormal liver enzymes Interval history: Patient reports he is starting to feel better today, he tolerated his diet yesterday. Reports are to have some energy return. Denies severe abdominal pain fevers or chills Objective - Constitutional Vitals: Temp Pulse Resp BP Pulse Ox 98.2 F 119 H 20 101/70 99 05/30/19 23:53 05/30/19 23:53 05/30/19 23:53 05/30/19 23:53 05/30/19 23:53 General appearance: no acute distress - EENT Eyes: scleral icterus - Neck Neck: supple - Respiratory Respiratory effort: normal - Cardiovascular Rhythm: regular - Gastrointestinal General gastrointestinal: Present: soft - Labs CBC & Chem 7: 05/31/19 05:24 05/31/19 05:24 Labs: Laboratory Results - last 24 hr 05/30/19 05/30/19 05/31/19 05:03 20:26 05:24 WBC RBC Hgb Hct MCV MCH MCHC RDW Plt Count Add Manual Diff Complete Total Counted 100 Seg Neuts % (Manual) 75.0 H Band Neutrophils % 3.0 Lymphocytes % (Manual) 13.0 L Reactive Lymphs % (Man) 0 Monocytes % (Manual) 4.0 Eosinophils % (Manual) 2.0 Basophils % (Manual) 1.0 Metamyelocytes % 0 Myelocytes % 2.0 Promyelocytes % 0 Blast Cells % 0 Nucleated RBC % 5.0 H Seg Neutrophils # Man 6.4 Band Neutrophils # 0.3 Lymphocytes # (Manual) 1.1 L Abs React Lymphs (Man) 0.0 Monocytes # (Manual) 0.3 Eosinophils # (Manual) 0.2 Basophils # (Manual) 0.1 Metamyelocytes # 0.0 Myelocytes # 0.2 Promyelocytes # 0.0 Blast Cells # 0.0 WBC Morphology Not Reportable Hypersegmented Neuts Not Reportable Hyposegmented Neuts Not Reportable Hypogranular Neuts Not Reportable Smudge Cells Not Reportable Toxic Granulation Not Reportable Toxic Vacuolation Not Reportable Dohle Bodies Not Reportable Pelger-Huet Anomaly Not Reportable Jeremy Rods Not Reportable Platelet Estimate Consistent w auto Clumped Platelets Not Reportable Plt Clumps, EDTA Not Reportable Large Platelets Not Reportable Giant Platelets Not Reportable Platelet Satelliting Not Reportable Plt Morphology Comment Not Reportable RBC Morphology Not Reportable Dimorphic RBCs Not Reportable Polychromasia Few Hypochromasia Few Poikilocytosis Not Reportable Anisocytosis Not Reportable Microcytosis Not Reportable Macrocytosis Not Reportable Spherocytes Not Reportable Pappenheimer Bodies Not Reportable Sickle Cells Not Reportable Target Cells 1+ Tear Drop Cells Not Reportable Ovalocytes Not Reportable Stomatocytes Few Helmet Cells Not Reportable Jaramillo-[place] Bodies Not Reportable [place] Rings Not Reportable Patrice Cells Not Reportable Bite Cells Not Reportable Crenated Cell Not Reportable Elliptocytes Not Reportable Acanthocytes (Spur) Not Reportable Rouleaux Not Reportable Hemoglobin C Crystals Not Reportable Schistocytes Not Reportable Malaria parasites Not Reportable Ang Bodies Not Reportable Hem Pathologist Commnt No PT 14.4 15.0 H INR 1.11 1.16 H Sodium Potassium Chloride Carbon Dioxide Anion Gap BUN Creatinine Estimated GFR BUN/Creatinine Ratio Glucose Calcium Total Bilirubin AST ALT Alkaline Phosphatase Total Protein Albumin Albumin/Globulin Ratio 05/31/19 05/31/19 05:24 05:24 WBC 11.7 H RBC 2.86 L Hgb 9.0 L Hct 27.7 L MCV 97 H MCH 32 MCHC 33 RDW 15.9 H Plt Count 277 Add Manual Diff Total Counted Seg Neuts % (Manual) Band Neutrophils % Lymphocytes % (Manual) Reactive Lymphs % (Man) Monocytes % (Manual) Eosinophils % (Manual) Basophils % (Manual) Metamyelocytes % Myelocytes % Promyelocytes % Blast Cells % Nucleated RBC % Seg Neutrophils # Man Band Neutrophils # Lymphocytes # (Manual) Abs React Lymphs (Man) Monocytes # (Manual) Eosinophils # (Manual) Basophils # (Manual) Metamyelocytes # Myelocytes # Promyelocytes # Blast Cells # WBC Morphology Hypersegmented Neuts Hyposegmented Neuts Hypogranular Neuts Smudge Cells Toxic Granulation Toxic Vacuolation Dohle Bodies Pelger-Huet Anomaly Jeremy Rods Platelet Estimate Clumped Platelets Plt Clumps, EDTA Large Platelets Giant Platelets Platelet Satelliting Plt Morphology Comment RBC Morphology Dimorphic RBCs Polychromasia Hypochromasia Poikilocytosis Anisocytosis Microcytosis Macrocytosis Spherocytes Pappenheimer Bodies Sickle Cells Target Cells Tear Drop Cells Ovalocytes Stomatocytes Helmet Cells Jaramillo-[place] Bodies [place] Rings Patrice Cells Bite Cells Crenated Cell Elliptocytes Acanthocytes (Spur) Rouleaux Hemoglobin C Crystals Schistocytes Malaria parasites Ang Bodies Hem Pathologist Commnt PT INR Sodium 129 L Potassium 3.8 Chloride 95.7 L Carbon Dioxide 17 L Anion Gap 20 BUN < 1 L Creatinine 0.3 L Estimated GFR > 60 BUN/Creatinine Ratio 3 Glucose 125 H Calcium 8.0 L Total Bilirubin 10.60 H AST 260 H ALT 89 H Alkaline Phosphatase 563 H Total Protein 5.1 L Albumin 2.5 L Albumin/Globulin Ratio 1.0
[2019-05-31] MEDS ORDERED: PHYTONADIONE 10 MG/1 ML (ADULT ONLY)*INJECTION SUB-Q SCH (10:00)
--- NOTE | 2019-05-31 12:52 | Discharge Summary ---
Providers - Providers Date of Admission: 05/29/19 13:15 Date of discharge: 05/31/19 Attending physician: STEVIE GRANADO 05/29/19 12:08 Consult to Physician [CONS] Routine Comment: Consulting Provider: SAMMY AYALA Physician Instructions: Reason For Exam: concern for choledocholithiasis, elevated LFT/Bili 05/29/19 23:55 Consult to Mental Health [CONS] Routine Reason For Exam: EtOH dependence Primary care physician: [employer] WORK[employer] Hospitalization Condition: Poor Hospital course: Patient is a 29 yo man with a history of tobacco dependency, alcohol abuse, Liver disease and seizure disorder who presented to hosptial with Sz at home. He was quite Intoxicated, with serum ETOH 0.22 (0-0.7). UDS is positive for Amphetamines and marijuana. Unwitnessed Sz with history fo sz, most likely ETOH related, ETOH intoxication: counseling done, neurochecks, sz precautions, on keppra Acute toxic encephalopathy from ETOH Hyponatremia, severe: treat with IVFs Alcohol abuse: treat with CIWA,added thiamine and folic acid Fatty liver/Hepatic steasosis due to ETOH Abd GB on imaging but no pains, and no confusion. MRCP, GI consulted Polysubstance abuse, counseling done, he attribute his current state to father dying 2 months abuse. He denies SI but he is in a destructive mode. He needs extensive out patient behavior therapy, will refer him to out patient psyc hiatrist. 05/30/19: d/c once sodium levels are stable, MRCP pending 05/31/19: d/w patient, he voiced U&A and left AMA Disposition: DC-[id number] LEFT AGAINST MED ADVICE Time spent for discharge: 31 minutes Core Measure Documentation - Palliative Care Palliative Care/ Comfort Measures: Not Applicable - Core Measures Any of the following diagnoses?: none - VTE Discharge Requirements Deep Vein Thrombosis/Pulmonary Embolism Present on Admission: No Has pt received <5 days of overlap therapy or INR<2.0: No Anticoagulant overlap therapy prescribed at discharge: No Contraindication No Overlap Therapy order at DC: Not Indicated Exam - Physical Exam Narrative exam: Gen: WDWN, NAD, Awake, Alert, Orientated HEENT: NCAT, EOMI, PERRL, OP Clear Neck: supple, no adenopathy, no thyromegaly, no JVD CVS/Heart: RT, normal S1S2, pulses present bilaterally Chest/Lungs: CTA B, Symmetrical chest expansion, good air entry bilaterally GI/Abdomen: soft, NTND, good bowel sounds, no guarding or rebound /Bladder: no suprapubic tenderness, no CVA or paraspinal tenderness Extermity/Skin: no c/c/e, no obvious rash MSK: FROM x 4 Neuro: CN 2-12 grossly intact, no new focal deficits Psych: calm - Constitutional Vitals: Temp Pulse Resp BP Pulse Ox 98.2 F 119 H 20 101/70 99 05/30/19 23:53 05/30/19 23:53 05/30/19 23:53 05/30/19 23:53 05/30/19 23:53 Plan Activity: other (no strenous activity) Diet: low salt Special Instructions: smoking cessation Follow up with: PRIMARY CAREMD [Primary Care Provider] - 3-5 Days Forms: AMA Form
== END 2019-05-31 08:30 | disposition left against medical advice (07) | DRG 100 ==
LOC: ED 08:03 → 4A 13:15
PROVIDERS: ADMIT Internal Medicine; ATTEND Internal Medicine
DX: G40.909 Epilepsy, unspecified, not intractable, without status epilepticus (principal); G92 Toxic encephalopathy; E87.1 Hypo-osmolality and hyponatremia; K80.40 Calculus of bile duct with cholecystitis, unspecified, without obstruction; F10.29 Alcohol dependence with unspecified alcohol-induced disorder; E87.6 Hypokalemia; Z53.29 Procedure and treatment not carried out because of patient's decision for other reasons; K70.0 Alcoholic fatty liver; F10.229 Alcohol dependence with intoxication, unspecified; Y90.9 Presence of alcohol in blood, level not specified; F12.10 Cannabis abuse, uncomplicated; F17.210 Nicotine dependence, cigarettes, uncomplicated; Z71.6 Tobacco abuse counseling; Z71.41 Alcohol abuse counseling and surveillance of alcoholic
CPT/HCPCS: 36415; 74022; 76705; 80053; 80074; 80307; 80320; 81001; 82140; 82150; 82607; 82747; 83550; 83690; 83735; 85007; 85025; 85027; 85610; 87040; 87086; 93005; 93010; G0378; G0480; J0610; J0696; J1953; J2060; J2543; J3411; J3475; J3480; J7030; J7042; J7050

== ENCOUNTER 2020-06-30 08:34 | Inpatient (IN) | payer OTHER ==
--- NOTE | 2020-06-30 08:40 | Event Note ---
ED Screening Note Date of service: 06/30/20 Time: 08:37 ED Screening Note: 30-year-old male patient with history of epilepsy (noncompliant with Keppra) and alcohol dependence presents emergency department with his girlfriend with reported complaints of convulsions. She states his current presentation is consistent with prior episodes of alcohol withdrawal. His last alcohol intake was 3 days ago. He was recently incarcerated and she does not believe he received his Keppra while he was in [facility]. General: Awake. Appears uncomfortable. Eyes: Scleral icterus present. Neck: Supple. Full range of motion intact. Cardiovascular: Normal peripheral perfusion. Pulmonary: No respiratory distress. Patient is speaking normally without use of accessory muscles. Skin: No apparent rashes or lesions. Neurological: Tremor of the bilateral upper extremities. Musculoskeletal: Moves all four extremities spontaneously with normal range of motion. Psych: Cooperative. Appropriate mood and affect. I have greeted and performed a focused rapid initial assessment of this patient. A comprehensive ED assessment and evaluation of the patient, analysis of all test results, and completion of the medical decision-making process will be conducted by additional ED providers. This initial assessment/diagnostic orders/clinical plan/treatment(s) is/are subject to change based on patients health status, clinical progression and re-assessment. Further treatment and workup at subsequent clinical provider's discretion. Patient/guardian urged not to elope from the ED as their condition may be serious if not clinically assessed and managed.
[2020-06-30] MEDS ORDERED: SODIUM CHLORIDE 0.9% 1000 ML 1,000 ML IV ONE (08:50)
[2020-06-30] MEDS ORDERED: levETIRAcetam 1000 MG/NS 0.75% 1,000 MG/100 ML BAG IV ONE (08:50)
--- NOTE | 2020-06-30 08:54 | Emergency Department Report ---
HPI - General Chief Complaint: Seizure Time Seen by Provider: 06/30/20 08:45 - HPI HPI: This is a 30-year-old -[place] male presents to the emergency department through triage, brought in by his girlfriend, with complaint of questionable seizure-like activity. The patient does have a history of seizures and has been noncompliant with his medication since he got out of senior living a few weeks ago. Through triage he showed some tremors and was saying that he was having a seizure but remained awake and cooperative. During my initial examination the patient is very sleepy, but is arousable. However he is not very cooperative with answering questions or with the examination. This patient was here about 1 year ago for some abdominal pain, transaminitis, cholelithiasis, and what appears to be alcoholic hepatitis. ED Past Medical Hx - Past Medical History Hx Liver Disease: Yes Hx Seizures: Yes Hx Asthma: No Additional medical history: Liver disease, ETOH abuse - Social History Smoking Status: Current Every Day Smoker ED Review of Systems ROS: Stated complaint: INTOXICATION/SEIZURES Other details as noted in HPI Comment: Unobtainable due to pts medical conditions Physical Exam - Physical Exam Vital Signs: Vital Signs 06/30/20 08:36 Temperature 97.7 F Pulse Rate 103 H Respiratory 18 Rate Blood Pressure 122/88 [Right] O2 Sat by Pulse 100 Oximetry Physical Exam: GENERAL: The patient is ill-appearing. HENT: Normocephalic. Atraumatic. Patient has moist mucous membranes. EYES: Scleral icterus. Pupils equal reactive to light bilaterally. NECK: Supple. Trachea is midline. CHEST/LUNGS: Clear to auscultation. There is no respiratory distress noted. HEART/CARDIOVASCULAR: Regular. There is no tachycardia. There is no murmur. ABDOMEN: Abdomen is soft. Patient has normal bowel sounds. There is some mild abdominal distention. SKIN: Skin is warm and dry. NEURO: The patient is extremely sleepy but is arousable. Once awake he appears confused. MUSCULOSKELETAL: There is no tenderness or deformity. There is no limitation range of motion. ED Course Vital Signs 06/30/20 08:36 Temperature 97.7 F Pulse Rate 103 H Respiratory 18 Rate Blood Pressure 122/88 [Right] O2 Sat by Pulse 100 Oximetry - Consultations Consultation #1: 06/30/20 12:09 I spoke to the fast food attendant on-call, Dr. Calix, who agrees with the plan for giving lactulose, obtaining an abdominal ultrasound, and they are happy to consult on the patient. 06/30/20 13:09 Dr Calix came and evaluated the patient in the emergency department. He has asked me to place an order for an MRCP to be done today. ED Medical Decision Making - Lab Data Result diagrams: 06/30/20 08:56 06/30/20 08:56 Lab Results 06/30/20 06/30/20 06/30/20 Range/Units 08:56 08:56 08:56 WBC 22.3 H (4.5-11.0) K/mm3 RBC 4.43 (3.65-5.03) M/mm3 Hgb 12.4 (11.8-15.2) gm/dl Hct 35.0 L (35.5-45.6) % MCV 79 L (84-94) fl MCH 28 (28-32) pg MCHC 36 H (32-34) % RDW 22.0 H (13.2-15.2) % Plt Count 269 (140-440) K/mm3 Lymph # (Auto) Millinery Blocker PT (12.2-14.9) Sec. INR (0.87-1.13) APTT (24.2-36.6) Sec. Sodium 140 (137-145) mmol/L Potassium 3.4 L (3.6-5.0) mmol/L Chloride 100.1 (98-107) mmol/L Carbon Dioxide 13 L (22-30) mmol/L Anion Gap 30 mmol/L BUN 5 L (9-20) mg/dL Creatinine < 0.2 L (0.8-1.3) mg/dL Estimated GFR > 60 ml/min BUN/Creatinine Ratio 25 % Glucose 124 H (75-100) mg/dL Calcium 8.6 (8.4-10.2) mg/dL Magnesium 1.60 L (1.7-2.3) mg/dL Total Bilirubin 25.40 H (0.1-1.2) mg/dL AST 150 H (5-40) units/L ALT 24 (7-56) units/L Alkaline Phosphatase 369 H (35-129) units/L Ammonia 194.0 H (25-60) umol/L Total Protein 6.2 L (6.3-8.2) g/dL Albumin 3.0 L (3.9-5) g/dL Albumin/Globulin Ratio 0.9 % Urine Color (Yellow) Urine Turbidity (Clear) Urine pH (5.0-7.0) Ur Specific [place] (1.003-1.030) Urine Protein (Negative) mg/dL Urine Glucose (UA) (Negative) mg/dL Urine Ketones (Negative) mg/dL Urine Blood (Negative) Urine Nitrite (Negative) Urine Bilirubin (Negative) Urine Ictotest (Negative) Urine Urobilinogen (<2.0) mg/dL Ur Leukocyte Esterase (Negative) Urine WBC (Auto) (0.0-6.0) /HPF Urine RBC (Auto) (0.0-6.0) /HPF U Epithel Cells (Auto) (0-13.0) /HPF Urine Bacteria (Auto) (Negative) /HPF Urine Mucus /HPF Urine Opiates Screen Urine Methadone Screen Ur Barbiturates Screen Ur Phencyclidine Scrn Ur Amphetamines Screen U Benzodiazepines Scrn Urine Cocaine Screen U Marijuana (THC) Screen Drugs of Abuse Note 06/30/20 06/30/20 06/30/20 Range/Units 09:19 12:18 12:18 WBC (4.5-11.0) K/mm3 RBC (3.65-5.03) M/mm3 Hgb (11.8-15.2) gm/dl Hct (35.5-45.6) % MCV (84-94) fl MCH (28-32) pg MCHC (32-34) % RDW (13.2-15.2) % Plt Count (140-440) K/mm3 Lymph # (Auto) PT 19.8 H (12.2-14.9) Sec. INR 1.68 H (0.87-1.13) APTT 41.1 H (24.2-36.6) Sec. Sodium (137-145) mmol/L Potassium (3.6-5.0) mmol/L Chloride (98-107) mmol/L Carbon Dioxide (22-30) mmol/L Anion Gap mmol/L BUN (9-20) mg/dL Creatinine (0.8-1.3) mg/dL Estimated GFR ml/min BUN/Creatinine Ratio % Glucose (75-100) mg/dL Calcium (8.4-10.2) mg/dL Magnesium (1.7-2.3) mg/dL Total Bilirubin (0.1-1.2) mg/dL AST (5-40) units/L ALT (7-56) units/L Alkaline Phosphatase (35-129) units/L Ammonia (25-60) umol/L Total Protein (6.3-8.2) g/dL Albumin (3.9-5) g/dL Albumin/Globulin Ratio % Urine Color [place] (Yellow) Urine Turbidity Clear (Clear) Urine pH 6.0 (5.0-7.0) Ur Specific [place] 1.009 (1.003-1.030) Urine Protein <15 mg/dl (Negative) mg/dL Urine Glucose (UA) Neg (Negative) mg/dL Urine Ketones Neg (Negative) mg/dL Urine Blood Sm (Negative) Urine Nitrite Neg (Negative) Urine Bilirubin Mod (Negative) Urine Ictotest Positive (Negative) Urine Urobilinogen 4.0 (<2.0) mg/dL Ur Leukocyte Esterase Neg (Negative) Urine WBC (Auto) 4.0 (0.0-6.0) /HPF Urine RBC (Auto) 11.0 (0.0-6.0) /HPF U Epithel Cells (Auto) < 1.0 (0-13.0) /HPF Urine Bacteria (Auto) 1+ (Negative) /HPF Urine Mucus Few /HPF Urine Opiates Screen Negative Urine Methadone Screen Negative Ur Barbiturates Screen Negative Ur Phencyclidine Scrn Negative Ur Amphetamines Screen Negative U Benzodiazepines Scrn Negative Urine Cocaine Screen Negative U Marijuana (THC) Screen Presumptive positive Drugs of Abuse Note Disclamer - EKG Data -: EKG Interpreted by Fl EKG shows normal: sinus rhythm, axis, intervals, QRS complexes, ST-T waves (Flattened T waves) Rate: tachycardia (111 bpm) - EKG Data When compared to previous EKG there are: changes noted (Previous EKG on 05/29/2019 did not show the current flattened T waves) Interpretation: other (Sinus tachycardia at 111 bpm, normal axis, normal i ntervals, flattened T waves. No ST elevation [place].) - Radiology Data Radiology results: report reviewed, image reviewed interpreted by me: Chest x-ray does not show any acute process. There are no pleural effusions, obvious pneumonia and there is no pneumothorax. No significant cardiomegaly. NONENHANCED CT SCAN OF THE HEAD: INDICATION / CLINICAL INFORMATION: 30 years Male; AMS. TECHNIQUE: Routine CT head without contrast. All CT scans at this location are performed using CT dose reduction for ALARA by means of automated exposure control. COMPARISON: None. FINDINGS: BRAIN / INTRACRANIAL CONTENTS: No acute hemorrhage, mass effect, midline shift, hydrocephalus, or acute, large territorial infarct. No chronic infarct or focal atrophy. Considering the age, height convexity cortical sulci are mildly prominent; medial temporal lobes normal. No significant white matter abnormality. CRANIOCERVICAL JUNCTION: No significant abnormality. ORBITS: No significant abnormality of visualized orbits. SINUSES / MASTOIDS: No significant abnormality of the visualized paranasal sinuses or mastoid air cells. ADDITIONAL FINDINGS: None. IMPRESSION: No focal parenchymal lesion ULTRASOUND ABDOMEN, LIMITED (RIGHT UPPER QUADRANT) INDICATION / CLINICAL INFORMATION: jaundice. COMPARISON: 05/29/2019 FINDINGS: PANCREAS: Visualized portion shows no significant abnormality. LIVER: Enlarged liver at 19.3 cm. Increased echogenicity suggesting fatty infiltration. GALLBLADDER: Considerable wall thickening measuring up to 8 mm with mild pericholecystic fluid and internal sludge and small stones or biliary crystals. BILE DUCTS: No significant abnormality. Common bile duct measures 2 mm. FREE FLUID: Moderate ascites. ADDITIONAL FINDINGS: None. IMPRESSION: 1. Hepatomegaly with findings suggestive of hepatic steatosis. 2. Biliary sludge and tiny stones. Considerable gallbladder wall thickening with mild pericholecystic fluid. No convincing evidence of acute cholecystitis. Biliary wall thickening can be seen in the setting of liver disease. 3. Moderate ascites. - Medical Decision Making This patient was initially brought in by his significant other after he had some seizure-like activity. The patient does have a history of seizures and apparently has been noncompliant with any medication since getting out of senior living. On his initial examination the patient appears jaundiced with scleral icterus. He is extremely sleepy. Once arousable he still appears confused and will go right back to sleep if not continuously stimulated. For this reason I sent the patient for a CT scan of the head without contrast. This resulted as no acute process. Patient's labs shows multiple abnormalities including a leukocytosis of 22,000, hyperbilirubinemia of 25, hyperammonemia of almost 200, elevated INR not on anticoagulation and a blood alcohol level of 0.27. Some of this appears consistent with alcoholic hepatitis but with the elevated bilirubin, jaundice and scleral icterus there is concern for obstructive jaundice. Patient was ordered a dose of lactulose. He is receiving IV fluid resuscitation and later a banana bag. Gastroenterology was contacted and consulted and came into the emergency department for evaluation of this patient. They have asked for the patient to receive an MRCP and we will continue to follow the patient. Myself and the patient's nurse spoke with the patient's mother in order to fill out the MRI form. Patient will be admitted to the hospital for further evaluation and treatment was accepted for admission by the hospitalist, Dr. Esqueda. Critical Care Time: Yes Critical care time in (mins) excluding proc time.: 35 Critical care attestation.: If time is entered above; I have spent that time in minutes in the direct care of this critically ill patient, excluding procedure time. Critical care time was spent on this patient in doing his initial evaluation, multiple reevaluations, ordering and interpretation of labs and imaging, discussion with the fast food attendant, discussion with the patient's mother, ordering of lactulose for the hyperammonemia, IV fluid resuscitation and banana bag for the alcohol intoxication. Critical Care Time: 35 minutes ED Disposition Clinical Impression: Transaminitis, Jaundice, Alcoholic hepatitis with ascites Cholelithiasis Qualifiers: Cholelithiasis location: gallbladder Cholecystitis presence: with cholecystitis Cholecystitis acuity: unspecified acuity Biliary obstruction: without biliary obstruction Qualified Code(s): K80.10 - Calculus of gallbladder with chronic cholecystitis without obstruction Alcohol intoxication Qualifiers: Complication of substance-induced condition: with unspecified complication Qualified Code(s): F10.929 - Alcohol use, unspecified with intoxication, unspecified Leukocytosis Qualifiers: Leukocytosis type: unspecified Qualified Code(s): D72.829 - Elevated white blood cell count, unspecified Disposition: DC09 OP ADMIT IP TO THIS HOSP Is pt being admited?: Yes Condition: Serious Time of Disposition: 14:17
--- NOTE | 2020-06-30 09:40 | Cat Scan Report ---
NONENHANCED CT SCAN OF THE HEAD: INDICATION / CLINICAL INFORMATION: 30 years Male; AMS. TECHNIQUE: Routine CT head without contrast. All CT scans at this location are performed using CT dos e reduction for ALARA by means of automated exposure control. COMPARISON: None. FINDINGS: BRAIN / INTRACRANIAL CONTENTS: No acute hemorrhage, mass effect, midline shift, hydrocephalus, or ac [place], large territorial infarct. No chronic infarct or focal atrophy. Considering the age, height conv exity cortical sulci are mildly prominent; medial temporal lobes normal. No significant white matter abnormality. CRANIOCERVICAL JUNCTION: No significant abnormality. ORBITS: No significant abnormality of visualized orbits. SINUSES / MASTOIDS: No significant abnormality of the visualized paranasal sinuses or mastoid air ray ls. ADDITIONAL FINDINGS: None. IMPRESSION: No focal parenchymal lesion Signer Name: Sukhdev Rosen MD Signed: 06/30/2020 9:35 AM Workstation Name: [id number]
[2020-06-30 09:44] LABS: Hemoglobin 12.4 gm/dl (11.8-15.2); Mean Corpuscular HGB Conc 36 % (32-34); Mean Corpuscular Volume 79 fl (84-94); Platelet Count 269 K/mm3 (140-440); Red Blood Count 4.43 M/mm3 (3.65-5.03)
[2020-06-30 10:08] LABS: Alanine Aminotransferase 24 units/L (7-56); Blood Urea Nitrogen 5 mg/dL (9-20); Calcium 8.6 mg/dL (8.4-10.2); Hemolysis Index 0
[2020-06-30 10:11] LABS: BUN/Creatinine Ratio 25
[2020-06-30 10:12] LABS: INR 1.68 (0.87-1.13)
[2020-06-30 10:13] LABS: Partial Thromboplastin Time 41.1 Sec. (24.2-36.6)
[2020-06-30] MEDS ORDERED: MAGNESIUM SULFATE 1 GM in SODIUM CHLORIDE 0.9% 50 ML IV ONE (11:00)
[2020-06-30] MEDS ORDERED: LACTULOSE 20 GM/30 ML ORAL LIQD PO ONE (11:18)
[2020-06-30] MEDS ORDERED: LORazepam 2 MG/ML VIAL IV ONE (12:05)
--- NOTE | 2020-06-30 12:27 | History and Physical Report ---
History of Present Illness Chief complaint: I think he had a seizure History of present illness: 30 YO Male with ETOH Dependence, Nicotine Dependence, Seizure Disorder, Chronic Liver Disease complicated by Ascites presents to ED for evaluation. Patient is lethargic with diminished cognition at the time of my evaluation and provides minimal history. Patient history taken from his girlfriend who is at bedside during exam and interview. As per girlfriend the patient has experienced increased weakness and confusion over the past 3 days with worsening symptoms over the same timeframe. Patient girlfriend reports "I think he had a seizure". Patient girlfriend knowledges daily alcohol ingestion with abstinence from alcohol over the past 3 days. Patient transported to [facility] via private vehicle for further care and evaluation. The patient was seen and evaluated in the emergency department. All lab and imaging studies reviewed. Patient found to have sepsis, chronic liver disease complicated by hepatic encephalopathy, elevated liver function test. Patient admitted to medical floor due to increased risk of worsening symptoms and hepatic decompensation. GI team consulted in ED. No further history obtainable. No reports of fever, chills, chest pain, palpitation, productive cough, skin rash, recent ill contacts, or known exposure to COVID-19. Patient has a history of incarceration and was released from custody 2 weeks ago. No prior admission for review. No medication listed at time of admission for reconciliation. Past History Past Medical History: seizures, other (See HPI) Past Surgical History: No surgical history, Other (Reviewed) Social history: single, smoking, alcohol abuse Family history: hypertension Medications and Allergies Allergies Allergy/AdvReac Type Severity Reaction Status Date / Time No Known Allergies Allergy Verified 05/29/19 08:31 Review of Systems ROS unobtainable: due to mental status Exam - Constitutional Vitals: Temp Pulse Resp BP Pulse Ox 97.7 F 76 11 L 122/88 100 06/30/20 08:36 06/30/20 09:34 06/30/20 09:34 06/30/20 08:36 06/30/20 08:36 General appearance: Present: mild distress, cachectic - EENT Eyes: Present: PERRL, scleral icterus ENT: hearing intact, clear oral mucosa - Neck Neck: Present: supple, normal ROM - Respiratory Respiratory effort: normal Respiratory: bilateral: CTA - Cardiovascular Heart Sounds: Present: S1 & S2. Absent: rub, click - Extremities Extremities: pulses symmetrical, No edema - Abdominal General gastrointestinal: Present: soft, non-distended, distended Male genitourinary: Present: normal - Integumentary Integumentary: Present: clear, warm, dry - Musculoskeletal Musculoskeletal: generalized weakness - Psychiatric Psychiatric: no appropriate mood/affect, no intact judgment & insight, no memory intact - Neurologic Neurologic: CNII-XII intact, no focal deficits, moves all extremities, no gait normal Results - Labs CBC & Chem 7: 06/30/20 08:56 06/30/20 08:56 Labs: Abnormal lab results 06/30/20 06/30/20 06/30/20 Range/Units 08:56 08:56 08:56 WBC 22.3 H (4.5-11.0) K/mm3 Hct 35.0 L (35.5-45.6) % MCV 79 L (84-94) fl MCHC 36 H (32-34) % RDW 22.0 H (13.2-15.2) % PT (12.2-14.9) Sec. INR (0.87-1.13) APTT (24.2-36.6) Sec. Potassium 3.4 L (3.6-5.0) mmol/L Carbon Dioxide 13 L (22-30) mmol/L BUN 5 L (9-20) mg/dL Creatinine < 0.2 L (0.8-1.3) mg/dL Glucose 124 H (75-100) mg/dL Magnesium 1.60 L (1.7-2.3) mg/dL Total Bilirubin 25.40 H (0.1-1.2) mg/dL AST 150 H (5-40) units/L Alkaline Phosphatase 369 H (35-129) units/L Ammonia 194.0 H (25-60) umol/L Total Protein 6.2 L (6.3-8.2) g/dL Albumin 3.0 L (3.9-5) g/dL 06/30/20 Range/Units 09:19 WBC (4.5-11.0) K/mm3 Hct (35.5-45.6) % MCV (84-94) fl MCHC (32-34) % RDW (13.2-15.2) % PT 19.8 H (12.2-14.9) Sec. INR 1.68 H (0.87-1.13) APTT 41.1 H (24.2-36.6) Sec. Potassium (3.6-5.0) mmol/L Carbon Dioxide (22-30) mmol/L BUN (9-20) mg/dL Creatinine (0.8-1.3) mg/dL Glucose (75-100) mg/dL Magnesium (1.7-2.3) mg/dL Total Bilirubin (0.1-1.2) mg/dL AST (5-40) units/L Alkaline Phosphatase (35-129) units/L Ammonia (25-60) umol/L Total Protein (6.3-8.2) g/dL Albumin (3.9-5) g/dL Assessment and Plan - Patient Problems (1) Sepsis Current Visit: Yes Status: Acute Plan to address problem: Sepsis protocol: Chest x-ray, CBC, CMP, urinalysis, empiric IV antibiotic therapy x1 dose, repeat CBC in a.m., serial lactic acid level, maintain mean arterial pressure greater than or equal to 65, blood culture. (2) Alcohol intoxication Current Visit: Yes Status: Acute Qualifiers: Complication of substance-induced condition: with unspecified complication Qualified Code(s): F10.929 - Alcohol use, unspecified with intoxication, unspecified Plan to address problem: Supportive care, CIWA protocol, thiamine, folic acid, multivitamin daily. (3) Alcoholic hepatitis with ascites Current Visit: Yes Status: Acute Plan to address problem: Supportive care CIWA protocol, thiamine, folic acid, multivitamin p.o. daily, alcohol abstinence. Supportive care. (4) Jaundice Current Visit: Yes Status: Acute (5) Transaminitis Current Visit: Yes Status: Acute Plan to address problem: Secondary to chronic liver disease, supportive care, continue medical management. GI team consulted in ED, will consider IV steroid therapy pending results of fractionated bilirubin. (6) Alcohol dependence Current Visit: No Status: Acute Qualifiers: Substance use status: unspecified alcohol-induced disorder Qualified Code(s): F10.29 - Alcohol dependence with unspecified alcohol-induced disorder Plan to address problem: Banana bag, CIWA protocol, supportive care. Patient currently intoxicated at time of admission. (7) Hepatic encephalopathy Current Visit: Yes Status: Acute Plan to address problem: CT head, liver function test, supportive care, seizure precautions, aspiration precautions, neurochecks. (8) DVT prophylaxis Current Visit: Yes Status: Acute Plan to address problem: SCD to bilateral lower extremities while in bed
[2020-06-30 12:35] LABS: Amphetamine Screen,Urine Negative; Benzodiazepines Screen,Urine Negative; Cocaine Screen,Urine Negative; Methadone Screen,Urine Negative; Opiate Screen,Urine Negative
[2020-06-30 12:42] LABS: Bacteria,Urine 1+ /HPF (Negative); Bilirubin,Urine MOD (Negative); Blood,Urine SM (Negative); Color,Urine Amber (Yellow); Mucus,Urine FEW /HPF; Protein,Urine <15 mg/dL mg/dL (Negative)
[2020-06-30 12:46] LABS: Ictotest,Urine Positive (Negative)
--- NOTE | 2020-06-30 13:03 | Ultrasound Report ---
ULTRASOUND ABDOMEN, LIMITED (RIGHT UPPER QUADRANT) INDICATION / CLINICAL INFORMATION: jaundice. COMPARISON: 05/29/2019 FINDINGS: PANCREAS: Visualized portion shows no significant abnormality. LIVER: Enlarged liver at 19.3 cm. Increased echogenicity suggesting fatty infiltration. GALLBLADDER: Considerable wall thickening measuring up to 8 mm with mild pericholecystic fluid and in ternal sludge and small stones or biliary crystals. BILE DUCTS: No significant abnormality. Common bile duct measures 2 mm. FREE FLUID: Moderate ascites. ADDITIONAL FINDINGS: None. IMPRESSION: 1. Hepatomegaly with findings suggestive of hepatic steatosis. 2. Biliary sludge and tiny stones. Considerable gallbladder wall thickening with mild pericholecystic fluid. No convincing evidence of acute cholecystitis. Biliary wall thickening can be seen in the set ting of liver disease. 3. Moderate ascites. Signer Name: Kennedy Calhoun MD Signed: 06/30/2020 12:59 PM Workstation Name: [id number]
--- NOTE | 2020-06-30 13:19 | XRay Report ---
XR chest 1V ap INDICATION / CLINICAL INFORMATION: cough COMPARISON: None available. FINDINGS: SUPPORT DEVICES: None. HEART / MEDIASTINUM: No significant abnormality. LUNGS / PLEURA: Low lung volumes. Lungs are clear. Costophrenic sulci are sharp. No pneumothorax. ADDITIONAL FINDINGS: No significant additional findings. IMPRESSION: 1. No acute findings. Signer Name: Sylvester Doan MD Signed: 06/30/2020 1:14 PM Workstation Name: [id number]
[2020-06-30] MEDS ORDERED: ALBUTEROL 2.5 MG/3 ML NEBU IH PRN (13:36)
[2020-06-30] MEDS ORDERED: ACETAMINOPHEN 325 MG TAB PO PRN ×2 (13:36→13:45)
[2020-06-30] MEDS ORDERED: ONDANSETRON 4 MG/2 ML INJ IV PRN (13:36)
[2020-06-30 13:41] LABS: Cannabinoid Screen,Urine PRESUMPTIVE POSITIVE
[2020-06-30] MEDS ORDERED: THIAMINE 100 MG TAB PO NR (13:42)
--- NOTE | 2020-06-30 13:51 | Consultation ---
History of Present Illness - Reason for Consult Consult date: 06/30/20 Jaundice, EtOH abuse Requesting physician: BLAKE GIFFORD - History of Present Illness Mr. Armstrong is a 30-year-old man brought in by his girlfriend for seizure and altered mental status, on whom I am consulted for jaundice and abnormal liver enzymes. Unfortunately, patient is unable to give a history due to lethargy and history is obtained from the chart and from the ER physician. Patient has a hi story of alcohol abuse and was seen in May of last year with jaundice with a bilirubin of 10 and abnormal liver enzymes. He had gallstones at that time and was to undergo an MRCP but, according to the notes, he was anxious to go home and an MRCP was never completed. According to the medical records here, patient was incarcerated and just released recently. He has been drinking at home. He has a history of seizures and was not taking his medications. He had a seizure and was brought in by his girlfriend. There is no reported history of GI bleed abdominal pain nausea or vomiting. Medications reviewed. Past History Past Medical History: hepatitis (alcoholic), seizures Past Surgical History: No surgical history Social history: alcohol abuse Family history: no significant family history Medications and Allergies Allergies Allergy/AdvReac Type Severity Reaction Status Date / Time No Known Allergies Allergy Verified 05/29/19 08:31 Active Meds: Active Medications Acetaminophen (Acetaminophen 325 Mg Tab) 650 mg PO Q4H PRN PRN Reason: Pain MILD(1-3)/Fever >100.5/MACDONALD Acetaminophen (Acetaminophen 325 Mg Tab) 650 mg PO Q6H PRN PRN Reason: Pain, Mild (1-3) Albuterol (Albuterol 2.5 Mg/3 Ml Nebu) 2.5 mg IH Q4HRT PRN PRN Reason: Shortness Of Breath Folic Acid (Folic Acid 1 Mg Tab) 1 mg PO QDAY TREVOR Hydromorphone HCl (Hydromorphone 1 Mg/1 Ml Inj) 0.25 mg IV Q4H PRN PRN Reason: Pain, Moderate (4-6) Thiamine HCl 100 mg/ Folic Acid 1 mg/ Multivitamins/Minerals 10 ml/ Sodium Chloride 1,011.2 mls @ 250 mls/hr IV ONCE ONE Stop: 06/30/20 18:02 Cefepime HCl (Cefepime/Ns 2 Gm/100 Ml) 2 gm in 100 mls @ 200 mls/hr IV ONCE ONE; Protocol Stop: 06/30/20 14:13 Multivitamins (Multivitamins ,Therapeutic Tab) 1 each PO QDAY TREVOR Ondansetron HCl (Ondansetron 4 Mg/2 Ml Inj) 4 mg IV Q8H PRN PRN Reason: Nausea And Vomiting Sodium Chloride (Sodium Chloride 0.9% 10 Ml Flush Syringe) 10 ml IV BID TREVOR Sodium Chloride (Sodium Chloride 0.9% 10 Ml Flush Syringe) 10 ml IV PRN PRN PRN Reason: LINE FLUSH Thiamine HCl (Thiamine 100 Mg Tab) 100 mg PO ONCE ONE Stop: 06/30/20 13:43 Review of Systems ROS unobtainable: due to mental status Exam - Constitutional Vitals: Temp Pulse Resp BP Pulse Ox 97.7 F 113 H 13 129/87 93 06/30/20 08:36 06/30/20 12:45 06/30/20 12:45 06/30/20 12:45 06/30/20 12:30 General appearance: Present: no acute distress, other (Lethargic, responds to touch) - EENT Eyes: Present: PERRL, EOM intact, scleral icterus - Respiratory Respiratory effort: normal Respiratory: bilateral: CTA (anteriorly) - Cardiovascular Rhythm: regular Heart Sounds: Present: S1 & S2 - Extremities Extremities: No edema - Abdominal General gastrointestinal: Present: soft, non-tender, normal bowel sounds, other (Protuberant) Results - Labs CBC & Chem 7: 06/30/20 08:56 06/30/20 08:56 Labs: Abnormal lab results 06/30/20 06/30/20 06/30/20 Range/Units 08:56 08:56 08:56 WBC 22.3 H (4.5-11.0) K/mm3 Hct 35.0 L (35.5-45.6) % MCV 79 L (84-94) fl MCHC 36 H (32-34) % RDW 22.0 H (13.2-15.2) % PT (12.2-14.9) Sec. INR (0.87-1.13) APTT (24.2-36.6) Sec. Potassium 3.4 L (3.6-5.0) mmol/L Carbon Dioxide 13 L (22-30) mmol/L BUN 5 L (9-20) mg/dL Creatinine < 0.2 L (0.8-1.3) mg/dL Glucose 124 H (75-100) mg/dL Magnesium 1.60 L (1.7-2.3) mg/dL Total Bilirubin 25.40 H (0.1-1.2) mg/dL AST 150 H (5-40) units/L Alkaline Phosphatase 369 H (35-129) units/L Ammonia 194.0 H (25-60) umol/L Total Protein 6.2 L (6.3-8.2) g/dL Albumin 3.0 L (3.9-5) g/dL Plasma/Serum Alcohol (0-0.07) % 06/30/20 06/30/20 Range/Units 09:19 Unknown WBC (4.5-11.0) K/mm3 Hct (35.5-45.6) % MCV (84-94) fl MCHC (32-34) % RDW (13.2-15.2) % PT 19.8 H (12.2-14.9) Sec. INR 1.68 H (0.87-1.13) APTT 41.1 H (24.2-36.6) Sec. Potassium (3.6-5.0) mmol/L Carbon Dioxide (22-30) mmol/L BUN (9-20) mg/dL Creatinine (0.8-1.3) mg/dL Glucose (75-100) mg/dL Magnesium (1.7-2.3) mg/dL Total Bilirubin (0.1-1.2) mg/dL AST (5-40) units/L Alkaline Phosphatase (35-129) units/L Ammonia (25-60) umol/L Total Protein (6.3-8.2) g/dL Albumin (3.9-5) g/dL Plasma/Serum Alcohol 0.27 H (0-0.07) % Assessment and Plan 1. Alcoholic hepatitis -patient has a detectable alcohol level here according to the ER physician though it is not yet reported in the computer. He may well be having alcoholic hepatitis and if so, he has a discriminant function of 50. He would benefit from steroid therapy up prednisolone 40 mg daily, once infection is excluded with chest x-ray and urinalysis, given the white count of 22,000. He was jaundiced last year and is jaundiced again this year, and an obstructive etiology needs to be excluded with an MRCP which has been ordered today. -Monitor for alcohol withdrawal -Give vitamin K and monitor INR for response -Once obvious infection excluded with chest x-ray and urine, and MR I, would give IV prednisone at 40 mg daily for alcoholic hepatitis -Get MRCP -Fractionate bilirubin 2. History of seizures -resume Keppra as per hospitalist. Patient was on this during last admission. Plan discussed with Dr. Esqueda, hospitalist.
[2020-06-30] MEDS ORDERED: THIAMINE 100 MG, FOLIC ACID 1 MG, MULTIPLE VITAMIN INJ, ADULT 10 ML in SODIUM CHLORIDE ... IV ONE (14:00)
--- NOTE | 2020-06-30 14:04 | Electrocardiograph Report ---
[facility] Test Date: 2020-06-30 Test Time: 13:13:11 Pat Name: DIPTI CERVANTES Department: Room: Gender: M Monkey Breeder: CLOVER : 1990 Requested By: ROSHAN LOPEZ Order Number: [id number] Reading MD: Josefa Irwin Measurements Intervals [place] Rate: 111 P: 35 CT: 155 QRS: 44 QRSD: 67 T: -33 QT: 329 QTc: 446 Interpretive Statements Sinus tachycardia Probable left atrial enlargement Borderline T abnormalities, diffuse leads No previous ECG available for comparison Electronically Signed On 06-30-2020 14:04:05 EDT by Josefa Irwin
[2020-06-30 14:20] LABS: Total Cells Counted 100
[2020-06-30 14:21] LABS: Anisocytosis 1+; Giant Platelets Rare
[2020-06-30 14:22] LABS: Platelet Estimate Consistent w Auto; Target Cells Rare
[2020-06-30] MEDS ORDERED: CEFEPIME/NS 2 GM/100 ML 2 GM/100 ML BAG IV ONE (14:30)
[2020-06-30] MEDS ORDERED: PHYTONADIONE(ADULT ONLY) 10 MG in SODIUM CHLORIDE 0.9% 50 ML IV ONE (14:30)
--- NOTE | 2020-06-30 14:57 | Magnetic Resonance Report ---
MR ABDOMEN MRCP HISTORY: Obstructive jaundice TECHNIQUE: Multisequence, multiplanar MRI. Thin slab and radial MRCP images. COMPARISON: Ultrasound abdomen limited performed earlier today FINDINGS: Limited exam with excessive patient motion. There is mild to moderate ascites throughout th e visualized abdomen. There appears to be moderate circumferential thickening of the colon concerning for colitis. The remaining visualized bowel loops are unremarkable. No evidence for obstruction. The liver is mildly enlarged with fatty change. No focal liver lesion is detected. The pancreas, sple en, kidneys and adrenal glands are unremarkable. The aorta and visualized vascular structures are pat ent. The MRCP images are limited but there is adequate visualization of the common bile duct. The CBD jonelle ures 5 mm. There is no evidence for filling defect or stricture. No intrahepatic biliary dilatation. There is mild gallbladder wall thickening which could be secondary to ascites or liver disease. A few tiny gallstones are identified within the gallbladder. IMPRESSION: Limited exam. There is evidence for tiny gallstones but no evidence for biliary obstruction. No choledocholithiasis . Mild hepatomegaly with steatosis. Ascites. Findings suggestive of a moderate to severe colitis. Signer Name: Heraclio Mahmood Jr, MD Signed: 06/30/2020 2:52 PM Workstation Name: [id number]
[2020-06-30] MEDS: HYDROmorphone 1 MG/1 ML INJ IV PRN (17:42)
[2020-06-30 18:22] LABS: INR 1.63 (0.87-1.13)
[2020-06-30 18:43] LABS: Bilirubin,Direct 16.3 mg/dL (0-0.2)
[2020-07-01] MEDS: HYDROmorphone 1 MG/1 ML INJ IV PRN (01:12)
[2020-07-01 02:31] LABS: Hematocrit 33.8 % (35.5-45.6); Hemoglobin 11.7 gm/dl (11.8-15.2); Mean Corpuscular HGB Conc 35 % (32-34); Mean Corpuscular Volume 79 fl (84-94); Platelet Count 191 K/mm3 (140-440); Red Blood Count 4.29 M/mm3 (3.65-5.03)
[2020-07-01 02:38] LABS: Alanine Aminotransferase 22 units/L (7-56); Albumin 2.8 g/dL (3.9-5); Blood Urea Nitrogen 5 mg/dL (9-20); Calcium 8.6 mg/dL (8.4-10.2); Hemolysis Index 0
[2020-07-01 02:43] LABS: INR 1.64 (0.87-1.13)
[2020-07-01 02:43] LABS: BUN/Creatinine Ratio 25
[2020-07-01] MEDS ORDERED: SODIUM CHLORIDE 0.9% 250ML 250 ML IV ONE (03:02)
[2020-07-01 03:15] LABS: Red Cell Distribution Width 21.6 % (13.2-15.2)
[2020-07-01 05:33] LABS: Anisocytosis 1+; Total Cells Counted 100
[2020-07-01 05:34] LABS: Hypochromasia 1+; Platelet Estimate Consistent w Auto; Target Cells 1+
[2020-07-01] MEDS ORDERED: CEFEPIME/NS 2 GM/100 ML 2 GM/100 ML BAG IV ONE (09:00)
[2020-07-01] MEDS: FOLIC ACID 1 MG TAB PO SCH (10:30)
[2020-07-01] MEDS: MULTIVITAMINS ,THERAPEUTIC TAB PO SCH (10:30)
[2020-07-01] MEDS: LORazepam 2 MG/ML VIAL IV PRN ×3 (11:25→21:46)
[2020-07-01] MEDS ORDERED: ACETAMINOPHEN 325 MG TAB PO PRN (12:19)
--- NOTE | 2020-07-01 12:27 | Gastroenterology Progress Note ---
Assessment and Plan - Patient Problems (1) Alcoholic hepatitis with ascites Current Visit: Yes Status: Acute Plan to address problem: - Prognosis very guarded, but labs (INR, LFTs) stable overnight. - Will d/c all narcotics, and continue MVI therapy. - If the lactic acid is negative tomorrow, and WBC continues to improve, will start low-dose steroids since DF > 25. - Will continue lactulose and xifaxan dual therapy; can d/c when ativan no longer needed. - IV fluids for elevated lactic acid and poor PO intake only for 2 liters to avoid hyponatremia/fluid shifts. - Will check Mg in the AM after replacement. - Will hold on diuretics given low K and mild ascites. Subjective Date of service: 07/01/20 Principal diagnosis: Alcoholic Hepatitis Interval history: The patient received ativan and is very somnolent (agitation/DTs, not new seizure). He has had no N/V, witnessed GI bleeding, or complaints of abdominal pain. He is able to take pills, but not consuming his diet. Objective - Constitutional Vitals: Temp Pulse Resp BP Pulse Ox 98.9 F 120 H 18 137/84 99 07/01/20 04:00 07/01/20 04:00 07/01/20 04:00 07/01/20 04:00 07/01/20 07:25 General appearance: other (Somnolent; arouses with stimuli) - EENT Eyes: scleral icterus ENT: hearing intact, clear oral mucosa - Respiratory Respiratory effort: normal Respiratory: bilateral: CTA - Cardiovascular Rhythm: regular Heart Sounds: Present: S1 & S2 - Extremities Extremities: no ischemia, No edema - Gastrointestinal General gastrointestinal: Present: soft, non-tender, distended (Mild ascites) - Labs CBC & Chem 7: 07/01/20 02:02 07/01/20 02:02 Labs: Laboratory Results - last 24 hr 06/30/20 06/30/20 06/30/20 08:56 12:18 12:18 WBC RBC Hgb Hct MCV MCH MCHC RDW Plt Count Add Manual Diff Complete Total Counted 100 Seg Neuts % (Manual) 87.0 H Lymphocytes % (Manual) 12.0 L Monocytes % (Manual) 1.0 Eosinophils % (Manual) Nucleated RBC % Not Reportable Seg Neutrophils # Man 19.4 H Band Neutrophils # 0.0 Lymphocytes # (Manual) 2.7 Abs React Lymphs (Man) 0.0 Monocytes # (Manual) 0.2 Eosinophils # (Manual) 0.0 Basophils # (Manual) 0.0 Metamyelocytes # 0.0 Myelocytes # 0.0 Promyelocytes # 0.0 Blast Cells # 0.0 WBC Morphology Not Reportable Hypersegmented Neuts Not Reportable Hyposegmented Neuts Not Reportable Hypogranular Neuts Not Reportable Smudge Cells Not Reportable Toxic Granulation Not Reportable Toxic Vacuolation Not Reportable Dohle Bodies Not Reportable Pelger-Huet Anomaly Not Reportable Jeremy Rods Not Reportable Platelet Estimate Consistent w auto Clumped Platelets Not Reportable Plt Clumps, EDTA Not Reportable Large Platelets Not Reportable Giant Platelets Rare Platelet Satelliting Not Reportable Plt Morphology Comment Not Reportable RBC Morphology Not Reportable Dimorphic RBCs Not Reportable Polychromasia Not Reportable Hypochromasia Not Reportable Poikilocytosis Not Reportable Anisocytosis 1+ Microcytosis Not Reportable Macrocytosis Not Reportable Spherocytes Not Reportable Pappenheimer Bodies Not Reportable Sickle Cells Not Reportable Target Cells Rare Tear Drop Cells Not Reportable Ovalocytes Not Reportable Helmet Cells Not Reportable Jaramillo-[place] Bodies Not Reportable [place] Rings Not Reportable [place] Cells Not Reportable Bite Cells Not Reportable Crenated Cell Not Reportable Elliptocytes Not Reportable Acanthocytes (Spur) Not Reportable Rouleaux Not Reportable Hemoglobin C Crystals Not Reportable Schistocytes Not Reportable Malaria parasites Not Reportable Ang Bodies Not Reportable Hem Pathologist Commnt No PT INR Sodium Potassium Chloride Carbon Dioxide Anion Gap BUN Creatinine Estimated GFR BUN/Creatinine Ratio Glucose Lactic Acid Calcium Total Bilirubin Direct Bilirubin Indirect Bilirubin AST ALT Alkaline Phosphatase Total Protein Albumin Albumin/Globulin Ratio Urine Color Sendy Urine Turbidity Clear Urine pH 6.0 Ur Specific [place] 1.009 Urine Protein <15 mg/dl Urine Glucose (UA) Neg Urine Ketones Neg Urine Blood Sm Urine Nitrite Neg Urine Bilirubin Mod Urine Ictotest Positive Urine Urobilinogen 4.0 Ur Leukocyte Esterase Neg Urine WBC (Auto) 4.0 Urine RBC (Auto) 11.0 U Epithel Cells (Auto) < 1.0 Urine Bacteria (Auto) 1+ Urine Mucus Few Urine Opiates Screen Negative Urine Methadone Screen Negative Ur Barbiturates Screen Negative Ur Phencyclidine Scrn Negative Ur Amphetamines Screen Negative U Benzodiazepines Scrn Negative Urine Cocaine Screen Negative U Marijuana (THC) Screen Presumptive positive Drugs of Abuse Note Disclamer Plasma/Serum Alcohol Blood Type Antibody Screen 06/30/20 06/30/20 06/30/20 17:48 17:48 17:48 WBC RBC Hgb Hct MCV MCH MCHC RDW Plt Count Add Manual Diff Total Counted Seg Neuts % (Manual) Lymphocytes % (Manual) Monocytes % (Manual) Eosinophils % (Manual) Nucleated RBC % Seg Neutrophils # Man Band Neutrophils # Lymphocytes # (Manual) Abs React Lymphs (Man) Monocytes # (Manual) Eosinophils # (Manual) Basophils # (Manual) Metamyelocytes # Myelocytes # Promyelocytes # Blast Cells # WBC Morphology Hypersegmented Neuts Hyposegmented Neuts Hypogranular Neuts Smudge Cells Toxic Granulation Toxic Vacuolation Dohle Bodies Pelger-Huet Anomaly Jeremy Rods Platelet Estimate Clumped Platelets Plt Clumps, EDTA Large Platelets Giant Platelets Platelet Satelliting Plt Morphology Comment RBC Morphology Dimorphic RBCs Polychromasia Hypochromasia Poikilocytosis Anisocytosis Microcytosis Macrocytosis Spherocytes Pappenheimer Bodies Sickle Cells Target Cells Tear Drop Cells Ovalocytes Helmet Cells Jaramillo-[place] Bodies [place] Rings Patrice Cells Bite Cells Crenated Cell Elliptocytes Acanthocytes (Spur) Rouleaux Hemoglobin C Crystals Schistocytes Malaria parasites Ang Bodies Hem Pathologist Commnt PT 19.4 H INR 1.63 H Sodium Potassium Chloride Carbon Dioxide Anion Gap BUN Creatinine Estimated GFR BUN/Creatinine Ratio Glucose Lactic Acid 8.50 H* Calcium Total Bilirubin 23.80 H Direct Bilirubin 16.3 H Indirect Bilirubin 7.5 AST ALT Alkaline Phosphatase Total Protein Albumin Albumin/Globulin Ratio Urine Color Urine Turbidity Urine pH Ur Specific [place] Urine Protein Urine Glucose (UA) Urine Ketones Urine Blood Urine Nitrite Urine Bilirubin Urine Ictotest Urine Urobilinogen Ur Leukocyte Esterase Urine WBC (Auto) Urine RBC (Auto) U Epithel Cells (Auto) Urine Bacteria (Auto) Urine Mucus Urine Opiates Screen Urine Methadone Screen Ur Barbiturates Screen Ur Phencyclidine Scrn Ur Amphetamines Screen U Benzodiazepines Scrn Urine Cocaine Screen U Marijuana (THC) Screen Drugs of Abuse Note Plasma/Serum Alcohol Blood Type Antibody Screen 06/30/20 06/30/20 07/01/20 17:55 Unknown 01:46 WBC RBC Hgb Hct MCV MCH MCHC RDW Plt Count Add Manual Diff Total Counted Seg Neuts % (Manual) Lymphocytes % (Manual) Monocytes % (Manual) Eosinophils % (Manual) Nucleated RBC % Seg Neutrophils # Man Band Neutrophils # Lymphocytes # (Manual) Abs React Lymphs (Man) Monocytes # (Manual) Eosinophils # (Manual) Basophils # (Manual) Metamyelocytes # Myelocytes # Promyelocytes # Blast Cells # WBC Morphology Hypersegmented Neuts Hyposegmented Neuts Hypogranular Neuts Smudge Cells Toxic Granulation Toxic Vacuolation Dohle Bodies Pelger-Huet Anomaly Jeremy Rods Platelet Estimate Clumped Platelets Plt Clumps, EDTA Large Platelets Giant Platelets Platelet Satelliting Plt Morphology Comment RBC Morphology Dimorphic RBCs Polychromasia Hypochromasia Poikilocytosis Anisocytosis Microcytosis Macrocytosis Spherocytes Pappenheimer Bodies Sickle Cells Target Cells Tear Drop Cells Ovalocytes Helmet Cells Jaramillo-[place] Bodies [place] Rings [place] Cells Bite Cells Crenated Cell Elliptocytes Acanthocytes (Spur) Rouleaux Hemoglobin C Crystals Schistocytes Malaria parasites Ang Bodies Hem Pathologist Commnt PT INR Sodium Potassium Chloride Carbon Dioxide Anion Gap BUN Creatinine Estimated GFR BUN/Creatinine Ratio Glucose Lactic Acid 7.50 H* Calcium Total Bilirubin Direct Bilirubin Indirect Bilirubin AST ALT Alkaline Phosphatase Total Protein Albumin Albumin/Globulin Ratio Urine Color Urine Turbidity Urine pH Ur Specific [place] Urine Protein Urine Glucose (UA) Urine Ketones Urine Blood Urine Nitrite Urine Bilirubin Urine Ictotest Urine Urobilinogen Ur Leukocyte Esterase Urine WBC (Auto) Urine RBC (Auto) U Epithel Cells (Auto) Urine Bacteria (Auto) Urine Mucus Urine Opiates Screen Urine Methadone Screen Ur Barbiturates Screen Ur Phencyclidine Scrn Ur Amphetamines Screen U Benzodiazepines Scrn Urine Cocaine Screen U Marijuana (THC) Screen Drugs of Abuse Note Plasma/Serum Alcohol 0.27 H Blood Type B POSITIVE Antibody Screen Negative 07/01/20 07/01/20 07/01/20 01:46 02:02 02:02 WBC 18.9 H RBC 4.29 Hgb 11.7 L Hct 33.8 L MCV 79 L MCH 27 L MCHC 35 H RDW 21.6 H Plt Count 191 Add Manual Diff Complete Total Counted 100 Seg Neuts % (Manual) 87.0 H Lymphocytes % (Manual) 6.0 L Monocytes % (Manual) 6.0 Eosinophils % (Manual) 1.0 Nucleated RBC % Not Reportable Seg Neutrophils # Man 16.4 H Band Neutrophils # 0.0 Lymphocytes # (Manual) 1.1 L Abs React Lymphs (Man) 0.0 Monocytes # (Manual) 1.1 H Eosinophils # (Manual) 0.2 Basophils # (Manual) 0.0 Metamyelocytes # 0.0 Myelocytes # 0.0 Promyelocytes # 0.0 Blast Cells # 0.0 WBC Morphology Not Reportable Hypersegmented Neuts Not Reportable Hyposegmented Neuts Not Reportable Hypogranular Neuts Not Reportable Smudge Cells Not Reportable Toxic Granulation Not Reportable Toxic Vacuolation Not Reportable Dohle Bodies Not Reportable Pelger-Huet Anomaly Not Reportable Jeremy Rods Not Reportable Platelet Estimate Consistent w auto Clumped Platelets Not Reportable Plt Clumps, EDTA Not Reportable Large Platelets Not Reportable Giant Platelets Not Reportable Platelet Satelliting Not Reportable Plt Morphology Comment Not Reportable RBC Morphology Not Reportable Dimorphic RBCs Not Reportable Polychromasia Not Reportable Hypochromasia 1+ Poikilocytosis Not Reportable Anisocytosis 1+ Microcytosis Not Reportable Macrocytosis Not Reportable Spherocytes Not Reportable Pappenheimer Bodies Not Reportable Sickle Cells Not Reportable Target Cells 1+ Tear Drop Cells Not Reportable Ovalocytes Not Reportable Helmet Cells Not Reportable Jaramillo-[place] Bodies Not Reportable [place] Rings Not Reportable [place] Cells Not Reportable Bite Cells Not Reportable Crenated Cell Not Reportable Elliptocytes Not Reportable Acanthocytes (Spur) Not Reportable Rouleaux Not Reportable Hemoglobin C Crystals Not Reportable Schistocytes Not Reportable Malaria parasites Not Reportable Ang Bodies Not Reportable Hem Pathologist Commnt No PT 19.5 H INR 1.64 H Sodium 145 Potassium 3.2 L Chloride 105.8 Carbon Dioxide 18 L Anion Gap 24 BUN 5 L Creatinine < 0.2 L Estimated GFR > 60 BUN/Creatinine Ratio 25 Glucose 93 Lactic Acid Calcium 8.6 Total Bilirubin 23.40 H Direct Bilirubin Indirect Bilirubin AST 163 H ALT 22 Alkaline Phosphatase 339 H Total Protein 5.6 L Albumin 2.8 L Albumin/Globulin Ratio 1.0 Urine Color Urine Turbidity Urine pH Ur Specific [place] Urine Protein Urine Glucose (UA) Urine Ketones Urine Blood Urine Nitrite Urine Bilirubin Urine Ictotest Urine Urobilinogen Ur Leukocyte Esterase Urine WBC (Auto) Urine RBC (Auto) U Epithel Cells (Auto) Urine Bacteria (Auto) Urine Mucus Urine Opiates Screen Urine Methadone Screen Ur Barbiturates Screen Ur Phencyclidine Scrn Ur Amphetamines Screen U Benzodiazepines Scrn Urine Cocaine Screen U Marijuana (THC) Screen Drugs of Abuse Note Plasma/Serum Alcohol Blood Type Antibody Screen 07/01/20 08:45 WBC RBC Hgb Hct MCV MCH MCHC RDW Plt Count Add Manual Diff Total Counted Seg Neuts % (Manual) Lymphocytes % (Manual) Monocytes % (Manual) Eosinophils % (Manual) Nucleated RBC % Seg Neutrophils # Man Band Neutrophils # Lymphocytes # (Manual) Abs React Lymphs (Man) Monocytes # (Manual) Eosinophils # (Manual) Basophils # (Manual) Metamyelocytes # Myelocytes # Promyelocytes # Blast Cells # WBC Morphology Hypersegmented Neuts Hyposegmented Neuts Hypogranular Neuts Smudge Cells Toxic Granulation Toxic Vacuolation Dohle Bodies Pelger-Huet Anomaly Jeermy Rods Platelet Estimate Clumped Platelets Plt Clumps, EDTA Large Platelets Giant Platelets Platelet Satelliting Plt Morphology Comment RBC Morphology Dimorphic RBCs Polychromasia Hypochromasia Poikilocytosis Anisocytosis Microcytosis Macrocytosis Spherocytes Pappenheimer Bodies Sickle Cells Target Cells Tear Drop Cells Ovalocytes Helmet Cells Jaramillo-[place] Bodies [place] Rings [place] Cells Bite Cells Crenated Cell Elliptocytes Acanthocytes (Spur) Rouleaux Hemoglobin C Crystals Schistocytes Malaria parasites Ang Bodies Hem Pathologist Commnt PT INR Sodium Potassium Chloride Carbon Dioxide Anion Gap BUN Creatinine Estimated GFR BUN/Creatinine Ratio Glucose Lactic Acid 2.50 H* Calcium Total Bilirubin Direct Bilirubin Indirect Bilirubin AST ALT Alkaline Phosphatase Total Protein Albumin Albumin/Globulin Ratio Urine Color Urine Turbidity Urine pH Ur Specific [place] Urine Protein Urine Glucose (UA) Urine Ketones Urine Blood Urine Nitrite Urine Bilirubin Urine Ictotest Urine Urobilinogen Ur Leukocyte Esterase Urine WBC (Auto) Urine RBC (Auto) U Epithel Cells (Auto) Urine Bacteria (Auto) Urine Mucus Urine Opiates Screen Urine Methadone Screen Ur Barbiturates Screen Ur Phencyclidine Scrn Ur Amphetamines Screen U Benzodiazepines Scrn Urine Cocaine Screen U Marijuana (THC) Screen Drugs of Abuse Note Plasma/Serum Alcohol Blood Type Antibody Screen
[2020-07-01] MEDS ORDERED: SODIUM CHLORIDE 0.9% 1000 ML 1,000 ML IV SCH (12:30)
[2020-07-01] MEDS ORDERED: levETIRAcetam 500 MG/5 ML ORAL LIQD PO SCH (13:00)
--- NOTE | 2020-07-01 15:14 | Progress Note ---
Assessment and Plan --Sepsis Likely due to severe colitis, continue empiric antibiotics Gentle IV fluid hydration, follow clinically -- Alcohol intoxication Supportive care, CIWA protocol, thiamine, folic acid, multivitamin daily. -- Alcoholic hepatitis with ascites Supportive care CIWA protocol, thiamine, folic acid, multivitamin p.o. daily, alcohol abstinence. Supportive care. Consulted GI -- Transaminitis Secondary to chronic liver disease, supportive care, continue medical management. GI team consulted in ED, continue steroid therapy and rifaximin --Hepatic encephalopathy Monitor ammonia level, continue lactulose Daily liver function test, supportive care, seizure precautions, aspiration precautions, neurochecks. --History of seizure disorder, continue Keppra twice daily -- DVT prophylaxis SCD to bilateral lower extremities while in bed --Full CODE STATUS --Poor prognosis Daily clinical course: 07/01; Cont to monitor clinically, remains altered, cont CIWA protocol, cont keppra iv. cont supportive care, cont lactulose Subjective Date of service: 07/01/20 Principal diagnosis: Alcoholic Hepatitis Interval history: Patient seen and examined. Medical records and medication list reviewed. No acute event overnight noted by the RN. Patient remains very confused and lethargic Discussed plan of care at bedside with patient's RN. Objective - Exam Narrative Exam: GENERAL: well-developed -Iranian male lying on bed appeared to be very somnolent. HEENT: Normocephalic. Atraumatic. Positive for icterus. Patient has dry mucous membranes. NECK: Supple. Trachea midline. CHEST/LUNGS: Clear to auscultated bilaterally, breathing nonlabored. No wheezes crackles or rhonchi. HEART/CARDIOVASCULAR: Regular in rate and rhythm. S1 and S2 positive. ABDOMEN: Abdomen is soft, nontender. Patient has normal bowel sounds. SKIN: There is no rash. Warm and dry. NEURO: Unable to follow any command but moves all extremities MUSCULOSKELETAL: No joint effusion or tenderness. EXTRIMITY: No edema, no cyanosis or clubbing. PSYCH: Unable to assess as patient is very lethargic. - Constitutional Vitals: Vital Signs - 12hr 07/01/20 07/01/20 07/01/20 03:41 03:42 03:58 Temperature 98.9 F Pulse Rate 124 H 124 H Respiratory 17 Rate Blood Pressure 139/84 Blood Pressure [Right] O2 Sat by Pulse 100 100 100 Oximetry 07/01/20 07/01/20 07/01/20 04:00 07:25 13:07 Temperature 98.9 F 99.0 F Pulse Rate 120 H 135 H Respiratory 18 16 Rate Blood Pressure 127/97 Blood Pressure 137/84 [Right] O2 Sat by Pulse 100 99 100 Oximetry - Labs CBC & Chem 7: 07/05/20 07:36 07/05/20 07:36 Labs: Abnormal lab results 06/30/20 06/30/20 06/30/20 Range/Units 17:48 17:48 17:48 WBC (4.5-11.0) K/mm3 Hgb (11.8-15.2) gm/dl Hct (35.5-45.6) % MCV (84-94) fl MCH (28-32) pg MCHC (32-34) % RDW (13.2-15.2) % Seg Neuts % (Manual) (40.0-70.0) % Lymphocytes % (Manual) (13.4-35.0) % Seg Neutrophils # Man (1.8-7.7) K/mm3 Lymphocytes # (Manual) (1.2-5.4) K/mm3 Monocytes # (Manual) (0.0-0.8) K/mm3 PT 19.4 H (12.2-14.9) Sec. INR 1.63 H (0.87-1.13) Potassium (3.6-5.0) mmol/L Carbon Dioxide (22-30) mmol/L BUN (9-20) mg/dL Creatinine (0.8-1.3) mg/dL Lactic Acid 8.50 H* (0.7-2.0) mmol/L Total Bilirubin 23.80 H (0.1-1.2) mg/dL Direct Bilirubin 16.3 H (0-0.2) mg/dL AST (5-40) units/L Alkaline Phosphatase (35-129) units/L Total Protein (6.3-8.2) g/dL Albumin (3.9-5) g/dL 07/01/20 07/01/20 07/01/20 Range/Units 01:46 01:46 02:02 WBC 18.9 H (4.5-11.0) K/mm3 Hgb 11.7 L (11.8-15.2) gm/dl Hct 33.8 L (35.5-45.6) % MCV 79 L (84-94) fl MCH 27 L (28-32) pg MCHC 35 H (32-34) % RDW 21.6 H (13.2-15.2) % Seg Neuts % (Manual) 87.0 H (40.0-70.0) % Lymphocytes % (Manual) 6.0 L (13.4-35.0) % Seg Neutrophils # Man 16.4 H (1.8-7.7) K/mm3 Lymphocytes # (Manual) 1.1 L (1.2-5.4) K/mm3 Monocytes # (Manual) 1.1 H (0.0-0.8) K/mm3 PT 19.5 H (12.2-14.9) Sec. INR 1.64 H (0.87-1.13) Potassium (3.6-5.0) mmol/L Carbon Dioxide (22-30) mmol/L BUN (9-20) mg/dL Creatinine (0.8-1.3) mg/dL Lactic Acid 7.50 H* (0.7-2.0) mmol/L Total Bilirubin (0.1-1.2) mg/dL Direct Bilirubin (0-0.2) mg/dL AST (5-40) units/L Alkaline Phosphatase (35-129) units/L Total Protein (6.3-8.2) g/dL Albumin (3.9-5) g/dL 07/01/20 07/01/20 Range/Units 02:02 08:45 WBC (4.5-11.0) K/mm3 Hgb (11.8-15.2) gm/dl Hct (35.5-45.6) % MCV (84-94) fl MCH (28-32) pg MCHC (32-34) % RDW (13.2-15.2) % Seg Neuts % (Manual) (40.0-70.0) % Lymphocytes % (Manual) (13.4-35.0) % Seg Neutrophils # Man (1.8-7.7) K/mm3 Lymphocytes # (Manual) (1.2-5.4) K/mm3 Monocytes # (Manual) (0.0-0.8) K/mm3 PT (12.2-14.9) Sec. INR (0.87-1.13) Potassium 3.2 L (3.6-5.0) mmol/L Carbon Dioxide 18 L (22-30) mmol/L BUN 5 L (9-20) mg/dL Creatinine < 0.2 L (0.8-1.3) mg/dL Lactic Acid 2.50 H* (0.7-2.0) mmol/L Total Bilirubin 23.40 H (0.1-1.2) mg/dL Direct Bilirubin (0-0.2) mg/dL AST 163 H (5-40) units/L Alkaline Phosphatase 339 H (35-129) units/L Total Protein 5.6 L (6.3-8.2) g/dL Albumin 2.8 L (3.9-5) g/dL
[2020-07-01] MEDS: levETIRAcetam 750 MG in DEXTROSE 5% IN WATER 100 ML IV SCH (18:55)
[2020-07-01] MEDS: D5W/0.9% NACL 1,000 ML IV SCH (21:52)
[2020-07-01] MEDS: RIFAXIMIN 550 MG TAB PO SCH (21:52)
[2020-07-02] MEDS: LORazepam 2 MG/ML VIAL IV PRN ×8 (00:34→22:52)
[2020-07-02] MEDS: levETIRAcetam 750 MG in DEXTROSE 5% IN WATER 100 ML IV SCH ×2 (06:03→17:38)
[2020-07-02] MEDS: RIFAXIMIN 550 MG TAB PO SCH ×2 (09:14→22:17)
[2020-07-02] MEDS: FOLIC ACID 1 MG TAB PO SCH (09:14)
[2020-07-02] MEDS: MULTIVITAMINS ,THERAPEUTIC TAB PO SCH (09:15)
[2020-07-02 09:44] LABS: Alanine Aminotransferase 20 units/L (7-56); Albumin 2.5 g/dL (3.9-5); Blood Urea Nitrogen 7 mg/dL (9-20); Calcium 8.3 mg/dL (8.4-10.2); Hemolysis Index 0
[2020-07-02 09:50] LABS: BUN/Creatinine Ratio 35
--- NOTE | 2020-07-02 10:27 | Gastroenterology Progress Note ---
Assessment and Plan - Patient Problems (1) Alcoholic hepatitis with ascites Current Visit: Yes Status: Acute Plan to address problem: - Prognosis very guarded, but labs (INR, LFTs) stable overnight. - Will stay off all narcotics, and continue MVI therapy. - Will start low-dose steroids since DF > 2; no overt signs of infection. - Will continue lactulose and xifaxan dual therapy; can d/c when ativan no longer needed. - Advance diet as tolerated tomorrow; for now keep on clears. - K/Mg/MVI replacement in progress. - Will hold on diuretics given low K and mild ascites. Subjective Date of service: 07/02/20 Principal diagnosis: Alcoholic Hepatitis Interval history: The patient is more alert today, though still confused; has no idea where he is. He can say his name, but mumbles most other words. Getting ativan for CIWA, but no reported seizures, and no fevers. He was able to tolerate crushed meds in applesauce today (I helped feed) and is able to tolerate sips of water and other fluids with a straw. No melena reported. Objective - Constitutional Vitals: Temp Pulse Resp BP Pulse Ox 98.7 F 131 H 17 131/92 100 07/02/20 05:34 07/02/20 05:34 07/02/20 05:34 07/02/20 05:34 07/02/20 05:34 General appearance: other (More alert, and agitated with a few tremors) - EENT Eyes: PERRL, scleral icterus - Respiratory Respiratory effort: normal Respiratory: bilateral: CTA - Cardiovascular Rhythm: regular Heart Sounds: Present: S1 & S2 - Gastrointestinal General gastrointestinal: Present: soft, non-tender, distended (Mild ascites) - Labs CBC & Chem 7: 07/01/20 02:02 07/02/20 08:53 Labs: Laboratory Results - last 24 hr 07/02/20 08:53 Sodium 145 Potassium 2.7 L* Chloride 111.2 H Carbon Dioxide 26 D Anion Gap 11 BUN 7 L Creatinine < 0.2 L Estimated GFR > 60 BUN/Creatinine Ratio 35 Glucose 103 H Calcium 8.3 L Magnesium 1.40 L Total Bilirubin 26.50 H AST 130 H ALT 20 Alkaline Phosphatase 307 H Total Protein 5.3 L Albumin 2.5 L Albumin/Globulin Ratio 0.9
[2020-07-02 10:29] LABS: INR 1.78 (0.87-1.13)
[2020-07-02] MEDS: predniSONE 10 MG TAB PO SCH (10:57)
[2020-07-02] MEDS ORDERED: POTASSIUM CHLORIDE ER 20 MEQ TAB PO ONE (11:00)
[2020-07-02] MEDS ORDERED: MAGNESIUM SULFATE 2 GM/50 ML BAG IV ONE (11:00)
[2020-07-02] MEDS ORDERED: POTASSIUM CHLORIDE 20 MEQ PACKET PO ONE (11:00)
--- NOTE | 2020-07-02 11:45 | Progress Note ---
Assessment and Plan --Sepsis Likely due to severe colitis, continue empiric antibiotics Gentle IV fluid hydration, follow clinically -- Alcohol intoxication Supportive care, CIWA protocol, thiamine, folic acid, multivitamin daily. -- Alcoholic hepatitis with ascites Supportive care CIWA protocol, thiamine, folic acid, multivitamin p.o. daily, alcohol abstinence. Supportive care. Consulted GI -- Transaminitis with coagulopathy Secondary to chronic liver disease, supportive care, continue medical management. GI team consulted in ED, continue steroid therapy and rifaximin --Hepatic encephalopathy ammonia level was 192 on admission Monitor ammonia level, continue lactulose Daily liver function test, supportive care, seizure precautions, aspiration precautions, neurochecks. --History of seizure disorder, continue Keppra twice daily --Severe hypokalemia/hypomagnesemia Replete and monitor level -- DVT prophylaxis SCD to bilateral lower extremities while in bed --Full CODE STATUS --Poor prognosis Daily clinical course: 07/01; Cont to monitor clinically, remains altered, cont CIWA protocol, cont keppra iv. cont supportive care, cont lactulose 07/02: - Prognosis very guarded, cont low-dose steroids since DF > 2; continue lactulose and xifaxan dual therapy; Advance diet as tolerated tomorrow; for now keep on clears. replete K/Mg/MVI, hold on diuretics given low K and mild ascites. Subjective Date of service: 07/02/20 Principal diagnosis: Alcoholic Hepatitis Interval history: Patient seen and examined. Medical records and medication list reviewed. No acute event overnight noted by the RN. Patient remains lethargic but today he will open his eyes to verbal command Discussed plan of care at bedside with patient's RN. Objective - Exam Narrative Exam: GENERAL: well-developed -[place]ian male lying on bed appeared to be lethargic but will open eyes with verbal command. HEENT: Normocephalic. Atraumatic. Positive for icterus. Patient has dry mucous membranes. NECK: Supple. Trachea midline. CHEST/LUNGS: Clear to auscultated bilaterally, breathing nonlabored. No wheezes crackles or rhonchi. HEART/CARDIOVASCULAR: Regular in rate and rhythm. S1 and S2 positive. ABDOMEN: Abdomen is soft, nontender. Patient has normal bowel sounds. SKIN: There is no rash. Warm and dry. NEURO: Does not follow any command but moves all extremities MUSCULOSKELETAL: No joint effusion or tenderness. EXTRIMITY: No edema, no cyanosis or clubbing. PSYCH: Unable to assess as patient is very lethargic. - Constitutional Vitals: Vital Signs - 12hr 07/01/20 07/02/20 23:55 05:34 Temperature 99.9 F H 98.7 F Pulse Rate 133 H 131 H Respiratory 20 17 Rate Blood Pressure 140/104 131/92 O2 Sat by Pulse 100 100 Oximetry - Labs CBC & Chem 7: 07/05/20 07:36 07/05/20 07:36 Labs: Abnormal lab results 07/02/20 07/02/20 Range/Units 08:53 08:53 PT 20.8 H (12.2-14.9) Sec. INR 1.78 H (0.87-1.13) Potassium 2.7 L* (3.6-5.0) mmol/L Chloride 111.2 H (98-107) mmol/L BUN 7 L (9-20) mg/dL Creatinine < 0.2 L (0.8-1.3) mg/dL Glucose 103 H (75-100) mg/dL Calcium 8.3 L (8.4-10.2) mg/dL Magnesium 1.40 L (1.7-2.3) mg/dL Total Bilirubin 26.50 H (0.1-1.2) mg/dL AST 130 H (5-40) units/L Alkaline Phosphatase 307 H (35-129) units/L Total Protein 5.3 L (6.3-8.2) g/dL Albumin 2.5 L (3.9-5) g/dL
[2020-07-02] MEDS: POTASSIUM CHLORIDE 10 MEQ 10 MEQ/100 ML BAG IV SCH ×2 (12:05→13:12)
[2020-07-02] MEDS: LACTULOSE 20 GM/30 ML ORAL LIQD PO SCH ×2 (15:56→22:17)
[2020-07-02] MEDS: D5W/0.9% NACL 1,000 ML IV SCH (22:58)
[2020-07-03] MEDS: LORazepam 2 MG/ML VIAL IV PRN ×2 (00:36→02:40)
[2020-07-03] MEDS: LACTULOSE 20 GM/30 ML ORAL LIQD PO SCH ×4 (03:15→22:46)
[2020-07-03] MEDS: levETIRAcetam 750 MG in DEXTROSE 5% IN WATER 100 ML IV SCH (05:07)
[2020-07-03 08:44] LABS: Hematocrit 31.9 % (35.5-45.6); Hemoglobin 10.7 gm/dl (11.8-15.2); Mean Corpuscular HGB Conc 34 % (32-34); Mean Corpuscular Volume 80 fl (84-94); Platelet Count 128 K/mm3 (140-440)
[2020-07-03] MEDS: predniSONE 10 MG TAB PO SCH (09:04)
[2020-07-03] MEDS: FOLIC ACID 1 MG TAB PO SCH (09:04)
[2020-07-03] MEDS: PANTOPRAZOLE 40 MG TAB PO SCH (09:04)
[2020-07-03] MEDS: MULTIVITAMINS ,THERAPEUTIC TAB PO SCH (09:04)
[2020-07-03] MEDS: RIFAXIMIN 550 MG TAB PO SCH ×2 (09:04→22:47)
[2020-07-03 09:09] LABS: INR 2.04 (0.87-1.13)
[2020-07-03 09:14] LABS: Alanine Aminotransferase 19 units/L (7-56); Albumin 2.5 g/dL (3.9-5); Blood Urea Nitrogen 6 mg/dL (9-20); Calcium 8.3 mg/dL (8.4-10.2); Hemolysis Index 0
[2020-07-03 09:15] LABS: BUN/Creatinine Ratio 30
[2020-07-03] MEDS ORDERED: POTASSIUM CHLORIDE ER 10 MEQ TAB PO SCH (10:00)
[2020-07-03] MEDS ORDERED: D5W/0.9% NACL 1,000 ML with POTASSIUM CHLORIDE 20 MEQ IV SCH (10:18)
[2020-07-03] MEDS ORDERED: HALOPERIDOL LACTATE 5 MG/1 ML INJ IM PRN (11:02)
--- NOTE | 2020-07-03 11:34 | Gastroenterology Progress Note ---
Assessment and Plan - Patient Problems (1) Alcoholic hepatitis with ascites Current Visit: Yes Status: Acute Plan to address problem: - Prognosis very guarded, but labs (INR, LFTs) stable. - Will stay off all narcotics, and continue MVI therapy. - Will continue low-dose steroids since DF > 25; no overt signs of infection. - Will continue lactulose and xifaxan dual therapy; can d/c when ativan no longer needed; would recommend d/c CIWA on Friday if no further signs of withdrawal (or tapering). - Advance diet as tolerated. - K/Mg/MVI replacement in progress. - Will hold on diuretics given low K and moderate ascites. Subjective Date of service: 07/03/20 Principal diagnosis: Alcoholic Hepatitis Interval history: The patient was more alert today, and tolerated some of his diet today. He has had no rectal bleeding. Objective - Constitutional Vitals: Temp Pulse Resp BP Pulse Ox 98.6 F 84 17 113/83 96 07/03/20 06:03 07/03/20 06:03 07/03/20 06:03 07/03/20 06:03 07/03/20 06:03 General appearance: no acute distress - Respiratory Respiratory effort: normal Respiratory: bilateral: CTA - Cardiovascular Rhythm: regular Heart Sounds: Present: S1 & S2 - Gastrointestinal General gastrointestinal: Present: soft, non-tender, distended (Moderate ascites) - Neurologic Neurological: oriented to person, other (No asterixis; no tremors) - Labs CBC & Chem 7: 07/03/20 08:18 07/03/20 08:18 Labs: Laboratory Results - last 24 hr 07/03/20 07/03/20 07/03/20 08:18 08:18 08:18 WBC 12.3 H RBC 4.00 Hgb 10.7 L Hct 31.9 L MCV 80 L MCH 27 L MCHC 34 RDW 23.0 H Plt Count 128 L PT 23.2 H INR 2.04 H Sodium 143 Potassium 2.8 L* Chloride 110.2 H Carbon Dioxide 22 Anion Gap 14 BUN 6 L Creatinine < 0.2 L Estimated GFR > 60 BUN/Creatinine Ratio 30 Glucose 97 Calcium 8.3 L Phosphorus Magnesium 1.70 Total Bilirubin 27.80 H AST 95 H ALT 19 Alkaline Phosphatase 311 H Ammonia Total Protein 5.2 L Albumin 2.5 L Albumin/Globulin Ratio 0.9 07/03/20 07/03/20 08:18 08:18 WBC RBC Hgb Hct MCV MCH MCHC RDW Plt Count PT INR Sodium Potassium Chloride Carbon Dioxide Anion Gap BUN Creatinine Estimated GFR BUN/Creatinine Ratio Glucose Calcium Phosphorus 2.10 L Magnesium Total Bilirubin AST ALT Alkaline Phosphatase Ammonia 62.0 H Total Protein Albumin Albumin/Globulin Ratio
[2020-07-03] MEDS: POTASSIUM CHLORIDE 20 MEQ PACKET PO SCH (11:40)
[2020-07-03] MEDS ORDERED: D5NS W/KCL 20 MEQ 20 MEQ/1,000 ML BAG IV SCH (12:00)
[2020-07-03] MEDS: POTASSIUM CHLORIDE 10 MEQ 10 MEQ/100 ML BAG IV SCH ×3 (13:33→15:59)
--- NOTE | 2020-07-03 17:55 | Progress Note ---
Assessment and Plan --Sepsis Likely due to severe colitis, continue empiric antibiotics Gentle IV fluid hydration, follow clinically -- Alcohol intoxication Supportive care, CIWA protocol, thiamine, folic acid, multivitamin daily. -- Alcoholic hepatitis with ascites Supportive care CIWA protocol, thiamine, folic acid, multivitamin p.o. daily, alcohol abstinence. Supportive care. Consulted GI -- Transaminitis with coagulopathy Secondary to chronic liver disease, supportive care, continue medical management. GI team consulted in ED, continue steroid therapy and rifaximin --Hepatic encephalopathy ammonia level was 192 on admission Monitor ammonia level, continue lactulose Daily liver function test, supportive care, seizure precautions, aspiration precautions, neurochecks. --History of seizure disorder, continue Keppra twice daily --Severe hypokalemia/hypomagnesemia/hypophosphatemia Replete and monitor level -- DVT prophylaxis SCD to bilateral lower extremities while in bed --Full CODE STATUS --Poor prognosis Daily clinical course: 07/01; Cont to monitor clinically, remains altered, cont CIWA protocol, cont ke ppra iv. cont supportive care, cont lactulose 07/02: - Prognosis very guarded, cont low-dose steroids since DF > 2; continue lactulose and xifaxan dual therapy; Advance diet as tolerated tomorrow; for now keep on clears. replete K/Mg/MVI, hold on diuretics given low K and mild ascites. 07/03; appears more alert today, placed on restrain yesterday as patient was trying to get down from the bed and remains altered. Will stop CIWA protocol. We will use Haldol as needed for agitation. Potassium today remains 2.8 with low phosphate level. Magnesium level improved. Continue to replete electrolyte as needed, follow serum chemistry. Ammonia level 62 today, reduce lactulose from every 6 hours to twice daily. Subjective Date of service: 07/03/20 Principal diagnosis: Alcoholic Hepatitis Interval history: Patient seen and examined. Medical records and medication list reviewed. No acute event overnight noted by the RN. Patient more alert today but still remains confused Placed on restraints since last night Discussed plan of care at bedside with patient's RN. Objective - Exam Narrative Exam: GENERAL: well-developed -[place]ian male lying on bed appeared to be lethargic but will open eyes with verbal command. HEENT: Normocephalic. Atraumatic. Positive for icterus. Patient has dry mucous membranes. NECK: Supple. Trachea midline. CHEST/LUNGS: Clear to auscultated bilaterally, breathing nonlabored. No wheezes crackles or rhonchi. HEART/CARDIOVASCULAR: Regular in rate and rhythm. S1 and S2 positive. ABDOMEN: Abdomen is soft, nontender, slightly distended. Patient has normal bowel sounds. SKIN: There is no rash. Warm and dry. NEURO: Does not follow any command but moves all extremities, restrained MUSCULOSKELETAL: No joint effusion or tenderness. EXTRIMITY: No edema, no cyanosis or clubbing. PSYCH: Unable to assess as patient does not appear to be cooperative. - Constitutional Vitals: Vital Signs - 12hr 07/03/20 07/03/20 06:03 10:00 Temperature 98.6 F Pulse Rate 84 Respiratory 17 Rate Blood Pressure 113/83 O2 Sat by Pulse 96 100 Oximetry - Labs CBC & Chem 7: 07/05/20 07:36 07/05/20 07:36 Labs: Abnormal lab results 07/03/20 07/03/20 07/03/20 Range/Units 08:18 08:18 08:18 WBC 12.3 H (4.5-11.0) K/mm3 Hgb 10.7 L (11.8-15.2) gm/dl Hct 31.9 L (35.5-45.6) % MCV 80 L (84-94) fl MCH 27 L (28-32) pg RDW 23.0 H (13.2-15.2) % Plt Count 128 L (140-440) K/mm3 PT 23.2 H (12.2-14.9) Sec. INR 2.04 H (0.87-1.13) Potassium 2.8 L* (3.6-5.0) mmol/L Chloride 110.2 H (98-107) mmol/L BUN 6 L (9-20) mg/dL Creatinine < 0.2 L (0.8-1.3) mg/dL Calcium 8.3 L (8.4-10.2) mg/dL Phosphorus (2.5-4.5) mg/dL Total Bilirubin 27.80 H (0.1-1.2) mg/dL AST 95 H (5-40) units/L Alkaline Phosphatase 311 H (35-129) units/L Ammonia (25-60) umol/L Total Protein 5.2 L (6.3-8.2) g/dL Albumin 2.5 L (3.9-5) g/dL 07/03/20 07/03/20 Range/Units 08:18 08:18 WBC (4.5-11.0) K/mm3 Hgb (11.8-15.2) gm/dl Hct (35.5-45.6) % MCV (84-94) fl MCH (28-32) pg RDW (13.2-15.2) % Plt Count (140-440) K/mm3 PT (12.2-14.9) Sec. INR (0.87-1.13) Potassium (3.6-5.0) mmol/L Chloride (98-107) mmol/L BUN (9-20) mg/dL Creatinine (0.8-1.3) mg/dL Calcium (8.4-10.2) mg/dL Phosphorus 2.10 L (2.5-4.5) mg/dL Total Bilirubin (0.1-1.2) mg/dL AST (5-40) units/L Alkaline Phosphatase (35-129) units/L Ammonia 62.0 H (25-60) umol/L Total Protein (6.3-8.2) g/dL Albumin (3.9-5) g/dL
[2020-07-03] MEDS ORDERED: POTASSIUM PHOSPHATE 30 MMOL in SODIUM CHLORIDE 0.9% 500 ML 500 ML IV ONE (18:54)
[2020-07-03] MEDS: levETIRAcetam 500 MG/5 ML ORAL LIQD PO SCH (20:28)
[2020-07-04 05:43] LABS: INR 1.92 (0.87-1.13)
[2020-07-04 05:45] LABS: Alanine Aminotransferase 21 units/L (7-56); Blood Urea Nitrogen 6 mg/dL (9-20); Calcium 8.9 mg/dL (8.4-10.2); Hemolysis Index 0
[2020-07-04 06:15] LABS: BUN/Creatinine Ratio 30
[2020-07-04] MEDS: PANTOPRAZOLE 40 MG TAB PO SCH (08:25)
[2020-07-04] MEDS: levETIRAcetam 500 MG/5 ML ORAL LIQD PO SCH ×2 (08:25→20:46)
[2020-07-04] MEDS: LACTULOSE 20 GM/30 ML ORAL LIQD PO SCH ×2 (10:35→21:49)
[2020-07-04] MEDS: RIFAXIMIN 550 MG TAB PO SCH ×2 (10:35→21:49)
[2020-07-04] MEDS: FOLIC ACID 1 MG TAB PO SCH (10:35)
[2020-07-04] MEDS: MULTIVITAMINS ,THERAPEUTIC TAB PO SCH (10:35)
[2020-07-04] MEDS: predniSONE 10 MG TAB PO SCH (10:35)
[2020-07-04] MEDS: POTASSIUM CHLORIDE 20 MEQ PACKET PO SCH (10:53)
[2020-07-04] MEDS ORDERED: MAGNESIUM SULFATE 3 GM in SODIUM CHLORIDE 0.9% 100 ML IV ONE (12:30)
--- NOTE | 2020-07-04 14:35 | Progress Note ---
Assessment and Plan --Sepsis Likely due to severe colitis, continue empiric antibiotics Gentle IV fluid hydration, follow clinically -- Alcohol intoxication Supportive care, s/p CISC protocol, thiamine, folic acid, multivitamin daily. As needed Haldol for agitation -- Alcoholic hepatitis with ascites Supportive care WA protocol, thiamine, folic acid, multivitamin p.o. daily, alcohol abstinence. Supportive care. Consulted GI -- Transaminitis with coagulopathy Secondary to chronic liver disease, supportive care, continue medical management. GI team consulted in ED, continue steroid therapy and rifaximin Monitor LFT and INR --Hepatic encephalopathy ammonia level was 192 on admission Monitor ammonia level, continue lactulose Daily liver function test, supportive care, seizure precautions, aspiration precautions, neurochecks. --Breakthrough seizure, continue Keppra twice daily --Severe hypokalemia/hypomagnesemia/hypophosphatemia Replete and monitor level --Substance abuse, alcohol abuse UDS is positive for marijuana, continue MVI Counseling will be done when patient mental status improved -- DVT prophylaxis SCD to bilateral lower extremities while in bed --Full CODE STATUS --Poor prognosis Brief history: Mr. Armstrong is a 30-year-old man with a history of seizure disorder and not taking medications at home, alcohol abuse, chronic alcoholic liver disease, substance abuse brought to ER on 06/30/2020 by his girlfriend for seizure and altered mental status. In the ER work-up showed elevated liver enzyme, coagulopathy, severe colitis in abdomen pelvis CT. According to the medical records here, patient was incarcerated and just released recently. He has been drinking at home. Patient was admitted for further evaluation and management. Abd MRCP: There is evidence for tiny gallstones but no evidence for biliary obstruction. No choledocholithiasis. Mild hepatomegaly with steatosis. Ascites. Findings suggestive of a moderate to severe colitis. Abd US: 1. Hepatomegaly with findings suggestive of hepatic steatosis. 2. Biliary sludge and tiny stones. Considerable gallbladder wall thickening with mild pericholecystic fluid. No convincing evidence of acute cholecystitis. Biliary wall thickening can be seen in the setting of liver disease. 3. Moderate ascites. CT head: No focal parenchymal lesion CXR: Normal bowel gas pattern. No evidence of obstruction or pneumoperitoneum. The accompanying chest x- ray shows no acute disease Daily clinical course: 07/01; Cont to monitor clinically, remains altered, cont CIWA protocol, cont keppra iv. cont supportive care, cont lactulose 07/02: - Prognosis very guarded, cont low-dose steroids since DF > 2; continue lactulose and xifaxan dual therapy; Advance diet as tolerated tomorrow; for now keep on clears. replete K/Mg/MVI, hold on diuretics given low K and mild ascites. 07/03; appears more alert today, placed on restrain yesterday as patient was trying to get down from the bed and remains altered. Will stop CIWA protocol. We will use Haldol as needed for agitation. Potassium today remains 2.8 with low phosphate level. Continue to replete electrolyte as needed, follow serum chemistry. Ammonia level 62 today, reduce lactulose from every 6 hours to twice daily. 07/04: Patient tolerating diet slightly better but remains confused. He remains on restraint. Continue to replete magnesium, continue lactulose rifaximin and low-dose steroid. LFT continue to trend up with elevated bilirubin. Very poor prognosis. Discontinue CIWA protocol, will give Haldol as needed for agitation. Discussed with the mother by phone and I informed her that patient is critically sick with a very poor prognosis. She verbalized understanding. Subjective Date of service: 07/04/20 Principal diagnosis: Alcoholic Hepatitis Interval history: Patient seen and examined. Medical records and medication list reviewed. No acute event overnight noted by the RN. Patient more alert today but still remains confused Per RN report patient is tolerating diet Patient remains on restrain, discussed with patient and mother by phone in d etails about management and plan of care Discussed plan of care at bedside with patient's RN. Objective - Exam Narrative Exam: GENERAL: well-developed -[place] male lying on bed appeared to be lethargic but will open eyes with verbal command. HEENT: Normocephalic. Atraumatic. Positive for icterus. Patient has dry mucous membranes. NECK: Supple. Trachea midline. CHEST/LUNGS: Clear to auscultated bilaterally, breathing nonlabored. No wheezes crackles or rhonchi. HEART/CARDIOVASCULAR: Regular in rate and rhythm. S1 and S2 positive. ABDOMEN: Abdomen is soft, nontender, slightly distended. Patient has normal bowel sounds. SKIN: There is no rash. Warm and dry. NEURO: moves all extremities, restrained MUSCULOSKELETAL: No joint effusion or tenderness. EXTRIMITY: No edema, no cyanosis or clubbing. PSYCH: Unable to assess as patient does not appear to be cooperative. - Constitutional Vitals: Vital Signs - 12hr 07/04/20 07/04/20 07/04/20 03:52 08:30 10:00 Temperature 97.4 F L Pulse Rate 111 H Respiratory 18 20 Rate Blood Pressure 132/81 O2 Sat by Pulse 93 96 96 Oximetry 07/04/20 12:28 Temperature 97.4 F L Pulse Rate 95 H Respiratory 16 Rate Blood Pressure 112/76 O2 Sat by Pulse 97 Oximetry - Labs CBC & Chem 7: 07/05/20 07:36 07/05/20 07:36 Labs: Abnormal lab results 07/04/20 07/04/20 Range/Units 04:56 04:56 PT 22.1 H (12.2-14.9) Sec. INR 1.92 H (0.87-1.13) Chloride 109.4 H (98-107) mmol/L Carbon Dioxide 17 L (22-30) mmol/L BUN 6 L (9-20) mg/dL Creatinine < 0.2 L (0.8-1.3) mg/dL Magnesium 1.40 L (1.7-2.3) mg/dL Total Bilirubin 28.50 H (0.1-1.2) mg/dL AST 92 H (5-40) units/L Alkaline Phosphatase 307 H (35-129) units/L Total Protein 5.6 L (6.3-8.2) g/dL Albumin 3.0 L (3.9-5) g/dL
--- NOTE | 2020-07-04 17:32 | Gastroenterology Progress Note ---
Assessment and Plan - Patient Problems (1) Alcoholic hepatitis with ascites Current Visit: Yes Status: Acute Plan to address problem: - Prognosis very guarded, but labs (INR, LFTs) stable. - Will stay off all narcotics, and continue MVI therapy. - Will continue low-dose steroids since DF > 25; no overt signs of infection. - Will continue lactulose and xifaxan dual therapy; can d/c when ativan no longer needed; would recommend d/c CIWA on Friday if no further signs of withdrawal (or tapering). - Advance diet as tolerated. - K/Mg/MVI replacement in progress. - Will hold on diuretics given low K and moderate ascites. Subjective Date of service: 07/04/20 Principal diagnosis: Alcoholic Hepatitis Interval history: The patient is able to take PO meds and sips of fluids; however, he remains consfused and uncooperative with nursing. He has to be restrained to avoid pulling out IVs or falling from bed. There is no melena or hematemesis. Objective - Constitutional Vitals: Temp Pulse Resp BP Pulse Ox 97.6 F 89 20 125/82 100 07/04/20 16:21 07/04/20 16:21 07/04/20 16:21 07/04/20 16:21 07/04/20 16:21 General appearance: no acute distress - Respiratory Respiratory effort: normal Respiratory: bilateral: CTA - Cardiovascular Rhythm: regular Heart Sounds: Present: S1 & S2 - Gastrointestinal General gastrointestinal: Present: soft, non-tender, distended (Moderate asci ramirez) - Neurologic Neurological: oriented to person - Labs CBC & Chem 7: 07/03/20 08:18 07/04/20 04:56 Labs: Laboratory Results - last 24 hr 07/04/20 07/04/20 04:56 04:56 PT 22.1 H INR 1.92 H Sodium 142 Potassium 3.8 D Chloride 109.4 H Carbon Dioxide 17 L Anion Gap 19 BUN 6 L Creatinine < 0.2 L Estimated GFR > 60 BUN/Creatinine Ratio 30 Glucose 92 Calcium 8.9 Magnesium 1.40 L Total Bilirubin 28.50 H AST 92 H ALT 21 Alkaline Phosphatase 307 H Total Protein 5.6 L Albumin 3.0 L Albumin/Globulin Ratio 1.2
[2020-07-05 08:08] LABS: Basophils # (Auto) 0.1 K/mm3 (0.0-0.1); Basophils % (Auto) 0.4 % (0.0-1.8); Eosinophils # (Auto) 0.1 K/mm3 (0.0-0.4); Eosinophils % (Auto) 0.8 % (0.0-4.3); Hematocrit 29.2 % (35.5-45.6); Lymphocytes # (Auto) 1.7 K/mm3 (1.2-5.4); Lymphocytes % (Auto) 11.7 % (13.4-35.0); Mean Corpuscular HGB Conc 34 % (32-34); Mean Corpuscular Volume 80 fl (84-94); Monocytes # (Auto) 1.2 K/mm3 (0.0-0.8); Monocytes % (Auto) 8.2 % (0.0-7.3); Platelet Count 148 K/mm3 (140-440); Red Blood Count 3.66 M/mm3 (3.65-5.03)
[2020-07-05 08:09] LABS: Red Cell Distribution Width 22.5 % (13.2-15.2)
[2020-07-05 08:30] LABS: Blood Urea Nitrogen 7 mg/dL (9-20); Calcium 8.2 mg/dL (8.4-10.2); Hemolysis Index 0
[2020-07-05 08:35] LABS: BUN/Creatinine Ratio 35
[2020-07-05] MEDS: FOLIC ACID 1 MG TAB PO SCH (10:28)
[2020-07-05] MEDS: levETIRAcetam 500 MG/5 ML ORAL LIQD PO SCH ×2 (10:28→20:54)
[2020-07-05] MEDS: MULTIVITAMINS ,THERAPEUTIC TAB PO SCH (10:28)
[2020-07-05] MEDS: RIFAXIMIN 550 MG TAB PO SCH ×2 (10:28→21:13)
[2020-07-05] MEDS: metroNIDAZOLE/NS 500 MG/100 ML 500 MG/100 ML BAG IV SCH ×2 (10:28→17:32)
[2020-07-05] MEDS: LACTULOSE 20 GM/30 ML ORAL LIQD PO SCH ×2 (10:30→21:12)
[2020-07-05] MEDS: POTASSIUM CHLORIDE IV SCH (10:48)
[2020-07-05] MEDS: D5W IV SCH (10:48)
[2020-07-05] MEDS: NACL IV SCH (10:48)
[2020-07-05] MEDS: POTASSIUM CHLORIDE ER 10 MEQ TAB PO SCH (10:53)
[2020-07-05] MEDS: PANTOPRAZOLE 40 MG TAB PO SCH (10:53)
[2020-07-05] MEDS: predniSONE 10 MG TAB PO SCH (10:58)
--- NOTE | 2020-07-05 13:05 | Progress Note ---
Assessment and Plan --Sepsis Likely due to severe colitis, continue empiric antibiotics Gentle IV fluid hydration, follow clinically -- Alcohol intoxication Supportive care, s/p CIIN protocol, thiamine, folic acid, multivitamin daily. As needed Haldol for agitation -- Alcoholic hepatitis with ascites Supportive care WA protocol, thiamine, folic acid, multivitamin p.o. daily, alcohol abstinence. Supportive care. Consulted GI -- Transaminitis with coagulopathy Secondary to chronic liver disease, supportive care, continue medical management. GI team consulted in ED, continue steroid therapy and rifaximin Monitor LFT and INR --Hepatic encephalopathy ammonia level was 192 on admission Monitor ammonia level, continue lactulose Daily liver function test, supportive care, seizure precautions, aspiration precautions, neurochecks. --Breakthrough seizure, continue Keppra twice daily --Severe hypokalemia/hypomagnesemia/hypophosphatemia Replete and monitor level --Substance abuse, alcohol abuse UDS is positive for marijuana, continue MVI Counseling will be done when patient mental status improved -- DVT prophylaxis SCD to bilateral lower extremities while in bed --Full CODE STATUS --Poor prognosis Brief history: Mr. Armstrong is a 30-year-old man with a history of seizure disorder and not taking medications at home, alcohol abuse, chronic alcoholic liver disease, substance abuse brought to ER on 06/30/2020 by his girlfriend for seizure and altered mental status. In the ER work-up showed elevated liver enzyme, coagulopathy, severe colitis in abdomen pelvis CT. According to the medical records here, patient was incarcerated and just released recently. He has been drinking at home. Patient was admitted for further evaluation and management. Abd MRCP: There is evidence for tiny gallstones but no evidence for biliary obstruction. No choledocholithiasis. Mild hepatomegaly with steatosis. Ascites. Findings suggestive of a moderate to severe colitis. Abd US: 1. Hepatomegaly with findings suggestive of hepatic steatosis. 2. Biliary sludge and tiny stones. Considerable gallbladder wall thickening with mild pericholecystic fluid. No convincing evidence of acute cholecystitis. Biliary wall thickening can be seen in the setting of liver disease. 3. Moderate ascites. CT head: No focal parenchymal lesion CXR: Normal bowel gas pattern. No evidence of obstruction or pneumoperitoneum. The accompanying chest x- ray shows no acute disease Daily clinical course: 07/01; Cont to monitor clinically, remains altered, cont CIWA protocol, cont keppra iv. cont supportive care, cont lactulose 07/02: - Prognosis very guarded, cont low-dose steroids since DF > 2; continue lactulose and xifaxan dual therapy; Advance diet as tolerated tomorrow; for now keep on clears. replete K/Mg/MVI, hold on diuretics given low K and mild ascites. 07/03; appears more alert today, placed on restrain yesterday as patient was trying to get down from the bed and remains altered. Will stop CIWA protocol. We will use Haldol as needed for agitation. Potassium today remains 2.8 with low phosphate level. Continue to replete electrolyte as needed, follow serum chemistry. Ammonia level 62 today, reduce lactulose from every 6 hours to twice daily. 07/04: Patient tolerating diet slightly better but remains confused. He remains on restraint. Continue to replete magnesium, continue lactulose rifaximin and low-dose steroid. LFT continue to trend up with elevated bilirubin. Very poor prognosis. Discontinue CIWA protocol, will give Haldol as needed for agitation. Discussed with the mother by phone and I informed her that patient is critically sick with a very poor prognosis. She verbalized understanding. 07/05: K 3.1 today, and sodium 146, cont to replete potassium, continue low volume IV fluid, follow CMP. Patient more alert and awake today, following commands, off restrain. Discussed plan of care at the bedside with the patient and with the significant other. Subjective Date of service: 07/05/20 Principal diagnosis: Alcoholic Hepatitis Interval history: Patient seen and examined. Medical records and medication list reviewed. No acute event overnight noted by the RN. Patient more alert today and off restrain Per RN report patient is tolerating diet Discussed plan of care with the significant other at the bedside Objective - Exam Narrative Exam: GENERAL: well-developed -Hungarian male lying on bed appeared to be in no acute distress HEENT: Normocephalic. Atraumatic. Positive for icterus. Patient has dry mucous membranes. NECK: Supple. Trachea midline. CHEST/LUNGS: Clear to auscultated bilaterally, breathing nonlabored. No wheezes crackles or rhonchi. HEART/CARDIOVASCULAR: Regular in rate and rhythm. S1 and S2 positive. ABDOMEN: Abdomen is soft, nontender, slightly distended. Patient has normal bowel sounds. SKIN: There is no rash. Warm and dry. NEURO: moves all extremities, no focal deficits MUSCULOSKELETAL: No joint effusion or tenderness. EXTRIMITY: No edema, no cyanosis or clubbing. PSYCH: cooperative. - Constitutional Vitals: Vital Signs - 12hr 07/05/20 03:47 Temperature 97.2 F L Respiratory 16 Rate Blood Pressure 122/83 - Labs CBC & Chem 7: 07/06/20 06:51 07/06/20 06:51 Labs: Abnormal lab results 07/05/20 07/05/20 07/05/20 Range/Units 07:36 07:36 07:36 WBC 14.5 H (4.5-11.0) K/mm3 Hgb 10.0 L (11.8-15.2) gm/dl Hct 29.2 L (35.5-45.6) % MCV 80 L (84-94) fl MCH 27 L (28-32) pg RDW 22.5 H (13.2-15.2) % Lymph % (Auto) 11.7 L (13.4-35.0) % [place] % (Auto) 8.2 H (0.0-7.3) % [place] # (Auto) 1.2 H (0.0-0.8) K/mm3 Seg Neutrophils % 78.9 H (40.0-70.0) % Seg Neutrophils # 11.5 H (1.8-7.7) K/mm3 Sodium 146 H (137-145) mmol/L Potassium 3.1 L (3.6-5.0) mmol/L Chloride 113.9 H (98-107) mmol/L Carbon Dioxide 20 L (22-30) mmol/L BUN 7 L (9-20) mg/dL Creatinine < 0.2 L (0.8-1.3) mg/dL Calcium 8.2 L (8.4-10.2) mg/dL Ammonia 71.0 H (25-60) umol/L
--- NOTE | 2020-07-05 17:43 | Gastroenterology Progress Note ---
Assessment and Plan - Patient Problems (1) Alcoholic hepatitis with ascites Current Visit: Yes Status: Acute Plan to address problem: - Prognosis very guarded, but labs (INR, LFTs) stable. - Will stay off all narcotics, and continue MVI therapy. - Will continue low-dose steroids since DF > 25; no overt signs of infection. - Will continue lactulose and xifaxan dual therapy; the patient has completed CIWA therapy. - Advance diet to regular. - K/Mg/MVI replacement in progress. - Will hold on diuretics until K and Mg are stabilized. Subjective Date of service: 07/05/20 Principal diagnosis: Alcoholic Hepatitis Interval history: The patient is more awake and alert today. No N/V/abdominal pain. He has completed CIWA therapy. Objective - Constitutional Vitals: Temp Pulse Resp BP Pulse Ox 97.8 F 94 H 18 129/84 99 07/05/20 11:30 07/05/20 11:30 07/05/20 11:30 07/05/20 11:30 07/05/20 11:30 General appearance: no acute distress - EENT Eyes: PERRL, scleral icterus - Respiratory Respiratory effort: normal Respiratory: bilateral: CTA - Cardiovascular Rhythm: regular Heart Sounds: Present: S1 & S2 - Gastrointestinal General gastrointestinal: Present: soft, non-tender, distended (Moderate ascites) - Labs CBC & Chem 7: 07/05/20 07:36 07/05/20 07:36 Labs: Laboratory Results - last 24 hr 07/05/20 07/05/20 07/05/20 07:36 07:36 07:36 WBC 14.5 H RBC 3.66 Hgb 10.0 L Hct 29.2 L MCV 80 L MCH 27 L MCHC 34 RDW 22.5 H Plt Count 148 Lymph % (Auto) 11.7 L [place] % (Auto) 8.2 H Eos % (Auto) 0.8 Baso % (Auto) 0.4 Lymph # (Auto) 1.7 [place] # (Auto) 1.2 H Eos # (Auto) 0.1 Baso # (Auto) 0.1 Seg Neutrophils % 78.9 H Seg Neutrophils # 11.5 H Sodium 146 H Potassium 3.1 L Chloride 113.9 H Carbon Dioxide 20 L Anion Gap 15 BUN 7 L Creatinine < 0.2 L Estimated GFR > 60 BUN/Creatinine Ratio 35 Glucose 97 Calcium 8.2 L Phosphorus 2.90 Magnesium 1.80 Ammonia 71.0 H
[2020-07-06] MEDS: metroNIDAZOLE/NS 500 MG/100 ML 500 MG/100 ML BAG IV SCH ×3 (01:43→18:21)
[2020-07-06 07:12] LABS: Hematocrit 31.6 % (35.5-45.6); Hemoglobin 10.6 gm/dl (11.8-15.2)
[2020-07-06 07:23] LABS: INR 1.97 (0.87-1.13)
[2020-07-06 07:32] LABS: Alanine Aminotransferase 25 units/L (7-56); Albumin 2.6 g/dL (3.9-5); Blood Urea Nitrogen 6 mg/dL (9-20); Hemolysis Index 27
[2020-07-06 07:41] LABS: BUN/Creatinine Ratio 30
[2020-07-06 07:47] LABS: Bilirubin,Direct 15.9 mg/dL (0-0.2)
[2020-07-06] MEDS: levETIRAcetam 500 MG/5 ML ORAL LIQD PO SCH ×2 (08:35→20:22)
[2020-07-06] MEDS: PANTOPRAZOLE 40 MG TAB PO SCH (08:35)
[2020-07-06] MEDS: FOLIC ACID 1 MG TAB PO SCH (09:54)
[2020-07-06] MEDS: MULTIVITAMINS ,THERAPEUTIC TAB PO SCH (09:54)
[2020-07-06] MEDS: POTASSIUM CHLORIDE ER 10 MEQ TAB PO SCH (09:55)
[2020-07-06] MEDS: predniSONE 10 MG TAB PO SCH (09:55)
[2020-07-06] MEDS: LACTULOSE 20 GM/30 ML ORAL LIQD PO SCH ×2 (09:55→22:28)
[2020-07-06] MEDS: RIFAXIMIN 550 MG TAB PO SCH ×2 (09:55→22:29)
--- NOTE | 2020-07-06 10:46 | Gastroenterology Progress Note ---
Assessment and Plan - Patient Problems (1) Alcoholic hepatitis with ascites Current Visit: Yes Status: Acute Plan to address problem: - Prognosis very guarded, but labs (INR, LFTs) stable/improved. - Will stay off all narcotics, and continue MVI therapy. - Will continue low-dose steroids since DF > 25; no overt signs of infection. - Will continue lactulose and xifaxan dual therapy; the patient has completed CIWA therapy. - Advance diet to regular. - K/Mg/MVI replacement in progress. - Diuretics initiated today since taking PO well. - OK to discharge home in next 1-2 days if his labs continue to be stable/improve. Subjective Date of service: 07/06/20 Principal diagnosis: Alcoholic Hepatitis Interval history: The patient is tolerating a regular diet and denies N/V/abdominal pain. There is no blood in the stools. His abdomen is still swollen. Objective - Constitutional Vitals: Temp Pulse Resp BP Pulse Ox 98.1 F 102 H 16 112/73 96 07/06/20 04:04 07/05/20 21:36 07/06/20 04:04 07/06/20 04:04 07/05/20 22:00 General appearance: no acute distress - EENT Eyes: PERRL, scleral icterus - Respiratory Respiratory effort: normal Respiratory: bilateral: CTA - Cardiovascular Rhythm: regular Heart Sounds: Present: S1 & S2 - Gastrointestinal General gastrointestinal: Present: soft, non-tender, distended (Moderate ascites) - Labs CBC & Chem 7: 07/06/20 06:51 07/06/20 06:51 Labs: Laboratory Results - last 24 hr 07/06/20 07/06/20 07/06/20 06:51 06:51 06:51 Hgb 10.6 L Hct 31.6 L PT 22.5 H INR 1.97 H Sodium 137 D Potassium 3.6 Chloride 105.9 Carbon Dioxide 18 L Anion Gap 17 BUN 6 L Creatinine < 0.2 L Estimated GFR > 60 BUN/Creatinine Ratio 30 Glucose 112 H Calcium 8.0 L Total Bilirubin 22.70 H Direct Bilirubin 15.9 H Indirect Bilirubin 6.8 AST 100 H ALT 25 Alkaline Phosphatase 297 H Total Protein 5.4 L Albumin 2.6 L Albumin/Globulin Ratio 0.9
[2020-07-06] MEDS: SPIRONOLACTONE 50 MG TAB PO SCH (12:17)
[2020-07-06] MEDS: FUROSEMIDE 20 MG TAB PO SCH (12:40)
--- NOTE | 2020-07-06 14:36 | Progress Note ---
Assessment and Plan --Sepsis Likely due to severe colitis, continue empiric antibiotics Gentle IV fluid hydration, follow clinically -- Alcohol intoxication Supportive care, s/p CINH protocol, thiamine, folic acid, multivitamin daily. As needed Haldol for agitation -- Alcoholic hepatitis with ascites Supportive care CIWA protocol, thiamine, folic acid, multivitamin p.o. daily, alcohol abstinence. Supportive care. Consulted GI -- Transaminitis with coagulopathy Secondary to chronic liver disease, supportive care, continue medical management. GI team consulted in ED, continue steroid therapy and rifaximin Monitor LFT and INR --Hepatic encephalopathy, improved ammonia level was 192 on admission Monitor ammonia level, continue lactulose Daily liver function test, supportive care, seizure precautions, aspiration precautions, neurochecks. --Breakthrough seizure, continue Keppra twice daily --Severe hypokalemia/hypomagnesemia/hypophosphatemia Replete and monitor level --Substance abuse, alcohol abuse UDS is positive for marijuana, continue MVI Counseling done for cessation -- DVT prophylaxis SCD to bilateral lower extremities while in bed --Full CODE STATUS --Poor prognosis Brief history: Mr. Armstrong is a 30-year-old man with a history of seizure disorder and not taking medications at home, alcohol abuse, chronic alcoholic liver disease, substance abuse brought to ER on 06/30/2020 by his girlfriend for seizu re and altered mental status. In the ER work-up showed elevated liver enzyme, coagulopathy, severe colitis in abdomen pelvis CT. According to the medical records here, patient was incarcerated and just released recently. He has been drinking at home. Patient was admitted for further evaluation and management. Abd MRCP: There is evidence for tiny gallstones but no evidence for biliary obstruction. No choledocholithiasis. Mild hepatomegaly with steatosis. Ascites. Findings suggestive of a moderate to severe colitis. Abd US: 1. Hepatomegaly with findings suggestive of hepatic steatosis. 2. Biliary sludge and tiny stones. Considerable gallbladder wall thickening with mild pericholecystic fluid. No convincing evidence of acute cholecystitis. Biliary wall thickening can be seen in the setting of liver disease. 3. Moderate ascites. CT head: No focal parenchymal lesion CXR: Normal bowel gas pattern. No evidence of obstruction or pneumoperitoneum. The accompanying chest x- ray shows no acute disease Daily clinical course: 5/1; Cont to monitor clinically, remains altered, cont CIWA protocol, cont keppra iv. cont supportive care, cont lactulose 07/02: - Prognosis very guarded, cont low-dose steroids since DF > 2; continue lactulose and xifaxan dual therapy; Advance diet as tolerated tomorrow; for now keep on clears. replete K/Mg/MVI, hold on diuretics given low K and mild ascites. 07/03; appears more alert today, placed on restrain yesterday as patient was trying to get down from the bed and remains altered. Will stop CIWA protocol. We will use Haldol as needed for agitation. Potassium today remains 2.8 with low phosphate level. Continue to replete electrolyte as needed, follow serum chemistry. Ammonia level 62 today, reduce lactulose from every 6 hours to twice daily. 07/04: Patient tolerating diet slightly better but remains confused. He remains on restraint. Continue to replete magnesium, continue lactulose rifaximin and low-dose steroid. LFT continue to trend up with elevated bilirubin. Very poor prognosis. Discontinue CIWA protocol, will give Haldol as needed for agitation. Discussed with the mother by phone and I informed her that patient is critically sick with a very poor prognosis. She verbalized understanding. 07/05: K 3.1 today, and sodium 146, cont to replete potassium, continue low volume IV fluid, follow CMP. Patient more alert and awake today, following commands, off restrain. Discussed plan of care at the bedside with the patient and with the significant other. 5/6; billirubin trending down 28.5>22.7, started on lasix and aldectone. PT eval pending. cont to monitor clinically, follow LFT. Subjective Date of service: 07/06/20 Principal diagnosis: Alcoholic Hepatitis Interval history: Patient seen and examined. Medical records and medication list reviewed. No acute event overnight noted by the RN. Patient more alert today and off restrain patient is tolerating diet, Discussed plan of care with the patient at the bedside Objective - Exam Narrative Exam: GENERAL: well-developed -[place] male lying on bed appeared to be in no acute distress HEENT: Normocephalic. Atraumatic. Positive for icterus. Patient has dry mucous membranes. NECK: Supple. Trachea midline. CHEST/LUNGS: Clear to auscultated bilaterally, breathing nonlabored. No wheezes crackles or rhonchi. HEART/CARDIOVASCULAR: Regular in rate and rhythm. S1 and S2 positive. ABDOMEN: Abdomen is soft, nontender, slightly distended. Patient has normal bowel sounds. SKIN: There is no rash. Warm and dry. NEURO: moves all extremities, no focal deficits MUSCULOSKELETAL: No joint effusion or tenderness. EXTRIMITY: No edema, no cyanosis or clubbing. PSYCH: cooperative. - Constitutional Vitals: Vital Signs - 12hr 07/06/20 07/06/20 07/06/20 04:04 12:17 12:26 Temperature 98.1 F 98.5 F Pulse Rate 100 H 100 H Respiratory 16 18 Rate Blood Pressure 112/73 109/75 Blood Pressure 109/75 [Right] O2 Sat by Pulse 97 Oximetry - Labs CBC & Chem 7: 07/06/20 06:51 07/06/20 06:51 Labs: Abnormal lab results 07/06/20 07/06/20 07/06/20 Range/Units 06:51 06:51 06:51 Hgb 10.6 L (11.8-15.2) gm/dl Hct 31.6 L (35.5-45.6) % PT 22.5 H (12.2-14.9) Sec. INR 1.97 H (0.87-1.13) Carbon Dioxide 18 L (22-30) mmol/L BUN 6 L (9-20) mg/dL Creatinine < 0.2 L (0.8-1.3) mg/dL Glucose 112 H (75-100) mg/dL Calcium 8.0 L (8.4-10.2) mg/dL Total Bilirubin 22.70 H (0.1-1.2) mg/dL Direct Bilirubin 15.9 H (0-0.2) mg/dL AST 100 H (5-40) units/L Alkaline Phosphatase 297 H (35-129) units/L Total Protein 5.4 L (6.3-8.2) g/dL Albumin 2.6 L (3.9-5) g/dL
[2020-07-06] MEDS: NACL IV SCH (18:13)
[2020-07-06] MEDS: POTASSIUM CHLORIDE IV SCH (18:13)
[2020-07-06] MEDS: D5W IV SCH (18:13)
[2020-07-07] MEDS: metroNIDAZOLE/NS 500 MG/100 ML 500 MG/100 ML BAG IV SCH ×2 (02:34→12:53)
[2020-07-07 07:48] LABS: Hemoglobin 9.9 gm/dl (11.8-15.2)
[2020-07-07 08:13] LABS: Alanine Aminotransferase 26 units/L (7-56); Albumin 2.4 g/dL (3.9-5); Blood Urea Nitrogen 6 mg/dL (9-20); Calcium 7.9 mg/dL (8.4-10.2); Hemolysis Index 0
[2020-07-07 08:20] LABS: BUN/Creatinine Ratio 30
[2020-07-07 08:43] LABS: Bilirubin,Direct 15.2 mg/dL (0-0.2)
[2020-07-07] MEDS: levETIRAcetam 500 MG/5 ML ORAL LIQD PO SCH (09:17)
[2020-07-07] MEDS: PANTOPRAZOLE 40 MG TAB PO SCH (09:18)
[2020-07-07] MEDS: FOLIC ACID 1 MG TAB PO SCH (10:51)
[2020-07-07] MEDS: predniSONE 10 MG TAB PO SCH (10:51)
[2020-07-07] MEDS: LACTULOSE 20 GM/30 ML ORAL LIQD PO SCH (10:52)
[2020-07-07] MEDS: RIFAXIMIN 550 MG TAB PO SCH (10:52)
[2020-07-07] MEDS: MULTIVITAMINS ,THERAPEUTIC TAB PO SCH (10:52)
[2020-07-07] MEDS: FUROSEMIDE 20 MG TAB PO SCH (10:55)
[2020-07-07] MEDS: POTASSIUM CHLORIDE ER 10 MEQ TAB PO SCH (10:57)
[2020-07-07] MEDS: SPIRONOLACTONE 50 MG TAB PO SCH (10:58)
[2020-07-07 11:00] VITALS: BP 106/68
--- NOTE | 2020-07-07 14:33 | Progress Note ---
Assessment and Plan Assessment and plan: --Sepsis Likely due to severe colitis, continue empiric antibiotics Gentle IV fluid hydration, follow clinically -- Alcohol intoxication Supportive care, s/p CIWA protocol, thiamine, folic acid, multivitamin daily. As needed Haldol for agitation -- Alcoholic hepatitis with ascites Supportive care CIWA protocol, thiamine, folic acid, multivitamin p.o. daily, alcohol abstinence. Supportive care. Consulted GI -- Transaminitis with coagulopathy Secondary to chronic liver disease, supportive care, continue medical management. GI team consulted in ED, continue steroid therapy and rifaximin Monitor LFT and INR --Hepatic encephalopathy, improved ammonia level was 192 on admission Monitor ammonia level, continue lactulose Ammonia slightly uptrending, patient without any confusion --Breakthrough seizure Continue Keppra twice daily --Severe hypokalemia/hypomagnesemia/hypophosphatemia Replete and monitor level --Substance abuse, alcohol abuse UDS is positive for marijuana, continue MVI Counseling done for cessation -- DVT prophylaxis SCD to bilateral lower extremities while in bed --Full CODE STATUS Disposition: Labs are downtrending, patient improving, monitor blood pressure while on diuretics, hopefully discharge within the next 24 hours History Interval history: 07/01; Cont to monitor clinically, remains altered, cont CIWA protocol, cont keppra iv. cont supportive care, cont lactulose 07/02: - Prognosis very guarded, cont low-dose steroids since DF > 2; continue lactulose and xifaxan dual therapy; Advance diet as tolerated tomorrow; for now keep on clears. replete K/Mg/MVI, hold on diuretics given low K and mild ascites. 07/03; appears more alert today, placed on restrain yesterday as patient was trying to get down from the bed and remains altered. Will stop CIWA protocol. We will use Haldol as needed for agitation. Potassium today remains 2.8 with low phosphate level. Continue to replete electrolyte as needed, follow serum chemistry. Ammonia level 62 today, reduce lactulose from every 6 hours to twice daily. 07/04: Patient tolerating diet slightly better but remains confused. He remains on restraint. Continue to replete magnesium, continue lactulose rifaximin and low-dose steroid. LFT continue to trend up with elevated bilirubin. Very poor prognosis. Discontinue CIWA protocol, will give Haldol as needed for agitation. Discussed with the mother by phone and I informed her that patient is critically sick with a very poor prognosis. She verbalized understanding. 07/05: K 3.1 today, and sodium 146, cont to replete potassium, continue low volume IV fluid, follow CMP. Patient more alert and awake today, following commands, off restrain. Discussed plan of care at the bedside with the patient and with the significant other. 07/06; billirubin trending down 28.5>22.7, started on lasix and aldectone. PT eval pending. cont to monitor clinically, follow LFT. 07/07 bilirubin continues to downtrend but continues to be elevated. Blood pressure little soft while on Lasix and Aldactone. Was given Aldactone only, Lasix was held. Patient working with PT, no confusion. Hospitalist Physical - Physical exam Narrative exam: General appearance no acute distress, well-nourished EENT: PERRL, scleral icterus, EOM intact, hearing intact, clear oral mucosa, dentition normal Neck: Present: supple, normal ROM Respiratory: bilateral: CTA, negative: rales, rhonchi, wheezing Cardiovascular: Regular rate/rhythm, Normal S1 & S2. No gallop, rub Extremities: no ischemia, No edema, normal temperature, normal color, Full ROM Abdominal: soft, non-tender, mildly distended abdomen, normal bowel sounds Integumentary: Present: clear, warm, dry Psychiatric: appropriate mood/affect, intact judgment & insight Neurologic: CNII-XII intact, mild upper extremity tremors, no confusion - Constitutional Vitals: Temp Pulse Resp BP Pulse Ox 98.1 F 105 H 18 106/68 99 07/07/20 11:05 07/07/20 11:05 07/06/20 20:25 07/07/20 11:05 07/07/20 11:05 General appearance: Present: mild distress, cachectic Results - Labs CBC & Chem 7: 07/07/20 07:22 07/07/20 07:22 Labs: Laboratory Last Values WBC 14.5 K/mm3 (4.5-11.0) H 07/05/20 07:36 RBC 3.66 M/mm3 (3.65-5.03) 07/05/20 07:36 Hgb 9.9 gm/dl (11.8-15.2) L 07/07/20 07:22 Hct 29.0 % (35.5-45.6) L 07/07/20 07:22 MCV 80 fl (84-94) L 07/05/20 07:36 MCH 27 pg (28-32) L 07/05/20 07:36 MCHC 34 % (32-34) 07/05/20 07:36 RDW 22.5 % (13.2-15.2) H 07/05/20 07:36 Plt Count 148 K/mm3 (140-440) 07/05/20 07:36 Lymph % (Auto) 11.7 % (13.4-35.0) L 07/05/20 07:36 [place] % (Auto) 8.2 % (0.0-7.3) H 07/05/20 07:36 Eos % (Auto) 0.8 % (0.0-4.3) 07/05/20 07:36 Baso % (Auto) 0.4 % (0.0-1.8) 07/05/20 07:36 Lymph # (Auto) 1.7 K/mm3 (1.2-5.4) 07/05/20 07:36 [place] # (Auto) 1.2 K/mm3 (0.0-0.8) H 07/05/20 07:36 Eos # (Auto) 0.1 K/mm3 (0.0-0.4) 07/05/20 07:36 Baso # (Auto) 0.1 K/mm3 (0.0-0.1) 07/05/20 07:36 Add Manual Diff Complete 07/01/20 02:02 Total Counted 100 07/01/20 02:02 Seg Neutrophils % 78.9 % (40.0-70.0) H 07/05/20 07:36 Seg Neuts % (Manual) 87.0 % (40.0-70.0) H 07/01/20 02:02 Lymphocytes % (Manual) 6.0 % (13.4-35.0) L 07/01/20 02:02 Monocytes % (Manual) 6.0 % (0.0-7.3) 07/01/20 02:02 Eosinophils % (Manual) 1.0 % (0.0-4.3) 07/01/20 02:02 Nucleated RBC % Not Reportable 07/01/20 02:02 Seg Neutrophils # 11.5 K/mm3 (1.8-7.7) H 07/05/20 07:36 Seg Neutrophils # Man 16.4 K/mm3 (1.8-7.7) H 07/01/20 02:02 Band Neutrophils # 0.0 K/mm3 07/01/20 02:02 Lymphocytes # (Manual) 1.1 K/mm3 (1.2-5.4) L 07/01/20 02:02 Abs React Lymphs (Man) 0.0 K/mm3 07/01/20 02:02 Monocytes # (Manual) 1.1 K/mm3 (0.0-0.8) H 07/01/20 02:02 Eosinophils # (Manual) 0.2 K/mm3 (0.0-0.4) 07/01/20 02:02 Basophils # (Manual) 0.0 K/mm3 (0.0-0.1) 07/01/20 02:02 Metamyelocytes # 0.0 K/mm3 07/01/20 02:02 Myelocytes # 0.0 K/mm3 07/01/20 02:02 Promyelocytes # 0.0 K/mm3 07/01/20 02:02 Blast Cells # 0.0 K/mm3 07/01/20 02:02 WBC Morphology Not Reportable 07/01/20 02:02 Hypersegmented Neuts Not Reportable 07/01/20 02:02 Hyposegmented Neuts Not Reportable 07/01/20 02:02 Hypogranular Neuts Not Reportable 07/01/20 02:02 Smudge Cells Not Reportable 07/01/20 02:02 Toxic Granulation Not Reportable 07/01/20 02:02 Toxic Vacuolation Not Reportable 07/01/20 02:02 Dohle Bodies Not Reportable 07/01/20 02:02 Pelger-Huet Anomaly Not Reportable 07/01/20 02:02 Jeremy Rods Not Reportable 07/01/20 02:02 Platelet Estimate Consistent w auto 07/01/20 02:02 Clumped Platelets Not Reportable 07/01/20 02:02 Plt Clumps, EDTA Not Reportable 07/01/20 02:02 Large Platelets Not Reportable 07/01/20 02:02 Giant Platelets Not Reportable 07/01/20 02:02 Platelet Satelliting Not Reportable 07/01/20 02:02 Plt Morphology Comment Not Reportable 07/01/20 02:02 RBC Morphology Not Reportable 07/01/20 02:02 Dimorphic RBCs Not Reportable 07/01/20 02:02 Polychromasia Not Reportable 07/01/20 02:02 Hypochromasia 1+ 07/01/20 02:02 Poikilocytosis Not Reportable 07/01/20 02:02 Anisocytosis 1+ 07/01/20 02:02 Microcytosis Not Reportable 07/01/20 02:02 Macrocytosis Not Reportable 07/01/20 02:02 Spherocytes Not Reportable 07/01/20 02:02 Pappenheimer Bodies Not Reportable 07/01/20 02:02 Sickle Cells Not Reportable 07/01/20 02:02 Target Cells 1+ 07/01/20 02:02 Tear Drop Cells Not Reportable 07/01/20 02:02 Ovalocytes Not Reportable 07/01/20 02:02 Helmet Cells Not Reportable 07/01/20 02:02 Jaram[place]-Prentice Bodies Not Reportable 07/01/20 02:02 [place] Rings Not Reportable 07/01/20 02:02 Patrice Cells Not Reportable 07/01/20 02:02 Bite Cells Not Reportable 07/01/20 02:02 Crenated Cell Not Reportable 07/01/20 02:02 Elliptocytes Not Reportable 07/01/20 02:02 Acanthocytes (Spur) Not Reportable 07/01/20 02:02 Rouleaux Not Reportable 07/01/20 02:02 Hemoglobin C Crystals Not Reportable 07/01/20 02:02 Schistocytes Not Reportable 07/01/20 02:02 Malaria parasites Not Reportable 07/01/20 02:02 Ang Bodies Not Reportable 07/01/20 02:02 Hem Pathologist Commnt No 07/01/20 02:02 PT 22.5 Sec. (12.2-14.9) H 07/06/20 06:51 INR 1.97 (0.87-1.13) H 07/06/20 06:51 APTT 41.1 Sec. (24.2-36.6) H 06/30/20 09:19 Sodium 140 mmol/L (137-145) 07/07/20 07:22 Potassium 3.9 mmol/L (3.6-5.0) 07/07/20 07:22 Chloride 106.8 mmol/L (98-107) 07/07/20 07:22 Carbon Dioxide 22 mmol/L (22-30) 07/07/20 07:22 Anion Gap 15 mmol/L 07/07/20 07:22 BUN 6 mg/dL (9-20) L 07/07/20 07:22 Creatinine 0.2 mg/dL (0.8-1.3) L 07/07/20 07:22 Estimated GFR > 60 ml/min 07/07/20 07:22 BUN/Creatinine Ratio 30 % 07/07/20 07:22 Glucose 100 mg/dL (75-100) 07/07/20 07:22 Lactic Acid 2.50 mmol/L (0.7-2.0) H* 07/01/20 08:45 Calcium 7.9 mg/dL (8.4-10.2) L 07/07/20 07:22 Phosphorus 2.90 mg/dL (2.5-4.5) 07/05/20 07:36 Magnesium 1.80 mg/dL (1.7-2.3) 07/05/20 07:36 Total Bilirubin 21.40 mg/dL (0.1-1.2) H 07/07/20 07:22 Direct Bilirubin 15.2 mg/dL (0-0.2) H 07/07/20 07:22 Indirect Bilirubin 6.2 mg/dL 07/07/20 07:22 AST 92 units/L (5-40) H 07/07/20 07:22 ALT 26 units/L (7-56) 07/07/20 07:22 Alkaline Phosphatase 307 units/L (35-129) H 07/07/20 07:22 Ammonia 71.0 umol/L (25-60) H 07/05/20 07:36 Total Protein 5.1 g/dL (6.3-8.2) L 07/07/20 07:22 Albumin 2.4 g/dL (3.9-5) L 07/07/20 07:22 Albumin/Globulin Ratio 0.9 % 07/07/20 07:22 Urine Color [place]y (Yellow) 06/30/20 12:18 Urine Turbidity Clear (Clear) 06/30/20 12:18 Urine pH 6.0 (5.0-7.0) 06/30/20 12:18 Ur Specific [place] 1.009 (1.003-1.030) 06/30/20 12:18 Urine Protein <15 mg/dl mg/dL (Negative) 06/30/20 12:18 Urine Glucose (UA) Neg mg/dL (Negative) 06/30/20 12:18 Urine Ketones Neg mg/dL (Negative) 06/30/20 12:18 Urine Blood Sm (Negative) 06/30/20 12:18 Urine Nitrite Neg (Negative) 06/30/20 12:18 Urine Bilirubin Mod (Negative) 06/30/20 12:18 Urine Ictotest Positive (Negative) 06/30/20 12:18 Urine Urobilinogen 4.0 mg/dL (<2.0) 06/30/20 12:18 Ur Leukocyte Esterase Neg (Negative) 06/30/20 12:18 Urine WBC (Auto) 4.0 /HPF (0.0-6.0) 06/30/20 12:18 Urine RBC (Auto) 11.0 /HPF (0.0-6.0) 06/30/20 12:18 U Epithel Cells (Auto) < 1.0 /HPF (0-13.0) 06/30/20 12:18 Urine Bacteria (Auto) 1+ /HPF (Negative) 06/30/20 12:18 Urine Mucus Few /HPF 06/30/20 12:18 Urine Opiates Screen Negative 06/30/20 12:18 Urine Methadone Screen Negative 06/30/20 12:18 Ur Barbiturates Screen Negative 06/30/20 12:18 Ur Phencyclidine Scrn Negative 06/30/20 12:18 Ur Amphetamines Screen Negative 06/30/20 12:18 U Benzodiazepines Scrn Negative 06/30/20 12:18 Urine Cocaine Screen Negative 06/30/20 12:18 U Marijuana (THC) Screen Presumptive positive 06/30/20 12:18 Drugs of Abuse Note Disclamer 06/30/20 12:18 Plasma/Serum Alcohol 0.27 % (0-0.07) H 06/30/20 Unknown Blood Type B POSITIVE 06/30/20 17:55 Antibody Screen Negative 06/30/20 17:55 Microbiology: Microbiology 07/05/20 16:14 Peripheral/Venous Blood Culture - Preliminary NO GROWTH AFTER 24 HOURS 07/05/20 16:14 Peripheral/Venous Blood Culture - Preliminary NO GROWTH AFTER 24 HOURS [place]/IV: Voiding Method Toilet Active Medications - Current Medications Current Medications: Generic Name Dose Route Start Last Admin Trade Name Freq PRN Reason Stop Dose Admin Acetaminophen 650 mg 07/01/20 12:19 Acetaminophen 325 Mg Tab PO Q8H PRN Pain MILD(1-3)/Fever >100.5/MACDONALD Albuterol 2.5 mg 06/30/20 13:36 Albuterol 2.5 Mg/3 Ml Nebu IH Q4HRT PRN Shortness Of Breath Folic Acid 1 mg 07/01/20 10:00 07/07/20 10:51 Folic Acid 1 Mg Tab PO 1 mg QDAY TREVOR Administration Furosemide 20 mg 07/06/20 11:00 07/07/20 10:55 Furosemide 20 Mg Tab PO Not Given QDAY TREVOR Haloperidol Lactate 2.5 mg 07/03/20 11:02 07/04/20 04:42 Haloperidol Lactate 5 Mg/1 Ml Inj IM 2.5 mg Q6H PRN Administration Agitation Potassium Chloride 20 meq/ 1,010 mls @ 42 mls/hr 07/05/20 10:00 07/06/20 18:13 Dextrose/Sodium Chloride IV 42 mls/hr DIRECT TREVOR Administration Metronidazole 500 mg in 100 mls @ 100 mls/hr 07/05/20 10:00 07/07/20 12:53 Flagyl 500 Mg/100 Ml IV 100 mls/hr Q8H TREVOR Administration Protocol Levofloxacin/Dextrose 750 mg in 150 mls @ 100 mls/hr 07/05/20 10:00 07/07/20 10:59 Levaquin 750mg/150ml IV 100 mls/hr Q24HR TREVOR Administration Protocol Lactulose 20 gm 07/03/20 11:00 07/07/20 10:52 Lactulose 20 Gm/30 Ml Oral Liqd PO 20 gm Q12HR TREVOR Administration Levetiracetam 750 mg 07/03/20 20:00 07/07/20 09:17 Levetiracetam 500 Mg/5 Ml Oral Liqd PO 750 mg BID@0800,1999 TREVOR Administration Multivitamins 1 each 07/01/20 10:00 07/07/20 10:52 Multivitamins ,Therapeutic Tab PO 1 each QDAY TREVOR Administration Ondansetron HCl 4 mg 06/30/20 13:36 Ondansetron 4 Mg/2 Ml Inj IV Q8H PRN Nausea And Vomiting Pantoprazole Sodium 40 mg 07/03/20 07:30 07/07/20 09:18 Pantoprazole 40 Mg Tab PO 40 mg QDAC TREVOR Administration Potassium Chloride 30 meq 07/05/20 10:00 07/07/20 10:57 Potassium Chloride Er 10 Meq Tab PO 30 meq QDAY TREVOR Administration Prednisone 10 mg 07/02/20 11:00 07/07/20 10:51 Prednisone 10 Mg Tab PO 07/15/20 10:01 10 mg QDAY TREVOR Administration Rifaximin 550 mg 07/01/20 22:00 07/07/20 10:52 Rifaximin 550 Mg Tab PO 550 mg BID TREVOR Administration Sodium Chloride 10 ml 06/30/20 22:00 07/07/20 11:00 Sodium Chloride 0.9% 10 Ml Flush Syringe IV 10 ml BID TREVOR Administration Sodium Chloride 10 ml 06/30/20 13:36 Sodium Chloride 0.9% 10 Ml Flush Syringe IV PRN PRN LINE FLUSH Spironolactone 50 mg 07/06/20 11:00 07/07/20 10:58 Spironolactone 50 Mg Tab PO 50 mg QDAY TREVOR Administration Nutrition/Malnutrition Assess - Dietary Evaluation Nutrition/Malnutrition Findings: Nutrition Notes Start: 07/07/20 12:20 Freq: Status: Active Protocol: Document 07/07/20 12:20 (Rec: 07/07/20 12:27 [email or web address]) Nutrition Notes Need for Assessment generated from: LOS Initial or Follow up Assessment Current Diagnosis Sepsis Other Pertinent Diagnosis cholelithiasis, jaundice, alcoholic hepatitis w/ascites Current Diet Regular Labs/Tests Reviewed Pertinent Medications Lasix K-Dur 30 mEq MVI Height 5 ft 5 in Weight 60.3 kg [place] Body Weight (kg) 61.81 BMI 22.1 Intake Prior to Admission Poor Weight Status Appropriate Subjective/Other Information Screen for LOS. Pt unsure of UBW or wt loss. 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 Pt drinking 100% of 2 ONS and 75% of meals. Pt states he ate 1/ 2 of a [employer] pizza. Pt would like to continue ONS due to wanting to gain weight. GI Symptoms None Current % PO Good (75-100%) Minimum of two criteria No physical signs of malnutrition #1 Nutrition Diagnosis No nutrition diagnosis at this time Is patient on ventilator? No Is Patient Ambulatory and/or Out of Bed Yes REE-([facility]-ambulatory/OOB) [ 1949.844 [id number]] Calculation Used for Recommendations [facility] Additional Notes Protein: (1-1.2g/kg) 60-72g Fluid: 1 ml/kcal or per MD Nutrition Intervention Change Diet Order: Cardiac Add Supplement/Snack (indicate name/kcal Ensure Enlive BID /protein ) Provides kCal: 700 Provides Protein (gm) 40 Goal #1 Continue to meet 75% of protein and energy needs via PO and ONS intakes Anticipated Discharge Needs: Regular Follow-Up By: 07/12/20 Additional Comments FU for stable intakes and ONS tolerance
--- NOTE | 2020-07-07 15:25 | Discharge Summary ---
Providers - Providers Date of Admission: 06/30/20 13:36 Date of discharge: 07/07/20 Attending physician: INGRID LLOYD MD 06/30/20 12:05 Consult to Physician [CONS] Routine Comment: Consulting Provider: MICHAEL HARE Physician Instructions: Reason For Exam: hepatic encephalopathy, hyperammonemia, ETOH hepa 07/06/20 10:23 Physical Therapy Evaluation and Treat [CONS] Routine Comment: Reason For Exam: Debility Primary care physician: MEDICAL BILLING REPRESENTATIVE Hospitalization Reason for admission: alcohol intoxication/seizure disorder/alcohol hepatitis Condition: Good Hospital course: --Sepsis Likely due to severe colitis, continue empiric antibiotics Gentle IV fluid hydration, follow clinically -- Alcohol intoxication Supportive care, s/p CIWA protocol, thiamine, folic acid, multivitamin daily. As needed Haldol for agitation -- Alcoholic hepatitis with ascites Supportive care CIWA protocol, thiamine, folic acid, multivitamin p.o. daily, alcohol abstinence. Supportive care. Consulted GI -- Transaminitis with coagulopathy Secondary to chronic liver disease, supportive care, continue medical management. GI team consulted in ED, continue steroid therapy and rifaximin Monitor LFT and INR --Hepatic encephalopathy, improved ammonia level was 192 on admission Monitor ammonia level, continue lactulose Ammonia slightly uptrending, patient without any confusion --Breakthrough seizure Continue Keppra twice daily --Severe hypokalemia/hypomagnesemia/hypophosphatemia Replete and monitor level --Substance abuse, alcohol abuse UDS is positive for marijuana, continue MVI Counseling done for cessation -- DVT prophylaxis SCD to bilateral lower extremities while in bed --Full CODE STATUS 07/01; Cont to monitor clinically, remains altered, cont CIWA protocol, cont keppra iv. cont supportive care, cont lactulose 07/02: - Prognosis very guarded, cont low-dose steroids since DF > 2; continue lactulose and xifaxan dual therapy; Advance diet as tolerated tomorrow; for now keep on clears. replete K/Mg/MVI, hold on diuretics given low K and mild ascites. 5/; appears more alert today, placed on restrain yesterday as patient was trying to get down from the bed and remains altered. Will stop CIWA protocol. We will use Haldol as needed for agitation. Potassium today remains 2.8 with low phosphate level. Continue to replete electrolyte as needed, follow serum chemistry. Ammonia level 62 today, reduce lactulose from every 6 hours to twice daily. 07/04: Patient tolerating diet slightly better but remains confused. He remains on restraint. Continue to replete magnesium, continue lactulose rifaximin and low-dose steroid. LFT continue to trend up with elevated bilirubin. Very poor prognosis. Discontinue CIWA protocol, will give Haldol as needed for agitation. Discussed with the mother by phone and I informed her that patient is critically sick with a very poor prognosis. She verbalized understanding. 07/05: K 3.1 today, and sodium 146, cont to replete potassium, continue low volume IV fluid, follow CMP. Patient more alert and awake today, following commands, off restrain. Discussed plan of care at the bedside with the patient and with the significant other. 07/06; billirubin trending down 28.5>22.7, started on lasix and aldectone. PT eval pending. cont to monitor clinically, follow LFT. 07/07 bilirubin downtrending, patient seems stable for discharge at this time. All scripts given to the patient, mother at the bedside and I explained every single prescription to the patient and to the family and explained why he needs to take the medication. Patient to follow-up with GI, patient given community resources and needs to follow-up with primary care. Disposition: DC-01 TO HOME OR SELFCARE Final Discharge Diagnosis (Prints w/discharge instructions): Sepsis. Alcohol intoxication. Alcoholic hepatitis. Ascites secondary to alcoholic hepatitis. Transaminitis. Alcohol abuse. Hepatic encephalopathy. Seizure disorder. Hypokalemia. Hypomagnesia. Hypophosphatemia. Substance abuse Time spent for discharge: 35 minutes Core Measure Documentation - Palliative Care Palliative Care/ Comfort Measures: Not Applicable - Core Measures Any of the following diagnoses?: none - VTE Discharge Requirements Deep Vein Thrombosis/Pulmonary Embolism Present on Admission: No Exam - Physical Exam Narrative exam: General appearance no acute distress, well-nourished EENT: PERRL, scleral icterus, EOM intact, hearing intact, clear oral mucosa, dentition normal Neck: Present: supple, normal ROM Respiratory: bilateral: CTA, negative: rales, rhonchi, wheezing Cardiovascular: Regular rate/rhythm, Normal S1 & S2. No gallop, rub Extremities: no ischemia, No edema, normal temperature, normal color, Full ROM Abdominal: soft, non-tender, mildly distended abdomen, normal bowel sounds Integumentary: Present: clear, warm, dry Psychiatric: appropriate mood/affect, intact judgment & insight Neurologic: CNII-XII intact, mild upper extremity tremors, no confusion - Constitutional Vitals: Temp Pulse Resp BP Pulse Ox 98.1 F 105 H 18 106/68 99 07/07/20 11:05 07/07/20 11:05 07/06/20 20:25 07/07/20 11:05 07/07/20 11:05 Plan Activity: no restrictions Diet: low salt Follow up with: PRIMARY CAREMD [Primary Care Provider] - 3-5 Days PHYLICIA ZAMUDIO MD [Staff Physician] - 7 Days Prescriptions: Spironolactone [Aldactone] 50 mg PO QDAY #30 tablet Lactulose [Cephulac] 20 gm PO Q12HR #1 bottle metroNIDAZOLE [Flagyl] 500 mg PO Q8HR 8 Days #24 tablet levETIRAcetam [Keppra] 750 mg PO BID #60 tab Furosemide [Lasix TAB] 20 mg PO QDAY #60 tablet levoFLOXacin [Levaquin TAB] 500 mg PO QDAY #8 tablet Multivitamin Tab [Multiple Vitamin TAB (Theragran)] 1 each PO QDAY #30 tablet predniSONE 10 mg PO QDAY #8 tablet Pantoprazole [Protonix TAB] 40 mg PO QDAC #60 tablet Rifaximin [Xifaxan] 550 mg PO BID #60 tablet
== END 2020-07-07 17:57 | disposition home or self-care (01) | DRG 872 ==
LOC: ED 08:34 → 3A 13:36
PROVIDERS: ADMIT Internal Medicine; ATTEND Family Medicine
DX: A41.9 Sepsis, unspecified organism (principal); D68.9 Coagulation defect, unspecified; F10.29 Alcohol dependence with unspecified alcohol-induced disorder; K80.10 Calculus of gallbladder with chronic cholecystitis without obstruction; K70.11 Alcoholic hepatitis with ascites; G40.909 Epilepsy, unspecified, not intractable, without status epilepticus; K72.90 Hepatic failure, unspecified without coma; K52.9 Noninfective gastroenteritis and colitis, unspecified; R74.01 Elevation of levels of liver transaminase levels; E87.6 Hypokalemia; E83.42 Hypomagnesemia; E83.39 Other disorders of phosphorus metabolism; F10.229 Alcohol dependence with intoxication, unspecified; F19.10 Other psychoactive substance abuse, uncomplicated; Z82.49 Family history of ischemic heart disease and other diseases of the circulatory system
CPT/HCPCS: 36415; 70450; 71045; 74181; 76705; 80048; 80053; 80076; 80307; 80320; 81001; 82140; 82247; 82248; 83735; 84100; 85007; 85014; 85018; 85025; 85027; 85610; 85730; 86850; 86900; 86901; 87040; 93005; 96365; 96375; G0378; G0480; J0692; J1170; J1630; J1953; J1956; J2060; J3411; J3430; J3475; J3480; J7030; J7040; J7042; J7512